=== PATIENT | female | born 1940 | race Caucasian/White ===

== ENCOUNTER 2019-07-28 09:24 | Emergency (ER) | payer OTHER ==
[2019-07-28 12:03] LABS: Urine Blood 2+ (NEG); Urine Glucose NEGATIVE (NEG); Urine Protein 1+ (NEG); Urine Specific Gravity 1.015 (1.005-1.030)
--- NOTE | 2019-07-28 12:17 | EDPHYS ---
Physician Documentation [facility] Name: Dianne Bone Age: 78 yrs Sex: Female : 1940 Arrival Date: 07/28/2019 Time: 09:26 Bed 17 Private MD: ED Physician Nas Suárez HPI: 07/28 12:13 This 78 yrs old Female presents to ER via Ambulatory with complaints of jmm Urinary Problem. 12:13 The patient presents with urinary symptoms, dysuria. Onset: The symptoms/episode jmm began/occurred gradually, 2 week(s) ago. Modifying factors: The symptoms are alleviated by nothing, the symptoms are aggravated by nothing. Associated signs and symptoms: Pertinent positives: hematuria, Pertinent negatives: fever, vomiting. This is a 78 year old female with a history of htn, that presents to the ED with complaints of painful urination beginning 2 week ago. Patient prescribed ampicillin with no relief. Denies abdominal pain, denies vomiting. . Historical: - Allergies: 10:03 Floxin; aa5 - PMHx: 10:03 Hypertension; Thyroid problem; aa5 - PSHx: 10:03 Bladder suspension; Hysterectomy; Tonsillectomy; Appendectomy; Cholecystectomy; aa5 - Ebola Screening: : No symptoms or risks identified at this time. ROS: 12:13 Constitutional: Negative for fever, chills, and weight loss, Cardiovascular: Negative jmm for chest pain, palpitations, and edema, Respiratory: Negative for shortness of breath, cough, wheezing, and pleuritic chest pain, Abdomen/GI: Negative for abdominal pain, nausea, vomiting, diarrhea, and constipation. 12:13 : Positive for urinary symptoms, hematuria. 12:13 All other systems are negative. Exam: 12:13 Constitutional: This is a well developed, well nourished patient who is awake, alert, jmm and in no acute distress. Head/Face: atraumatic. Eyes: EOMI, no conjunctival erythema appreciated ENT: Moist Mucus Membranes Neck: Trachea midline, Supple Chest/axilla: Normal chest wall appearance and motion. Cardiovascular: Regular rate and rhythm. No edema appreciated Respiratory: Normal respirations, no respiratory distress appreciated Abdomen/GI: Non distended, soft Back: Normal ROM Skin: General appearance color normal MS/ Extremity: Moves all extremities, no obvious deformities appreciated, no edema noted to the lower extremities Neuro: Awake and alert, normal gait Psych: Behavior is normal, Mood is normal, Patient is cooperative and pleasant 12:13 Abdomen/GI: Inspection: abdomen appears normal, Bowel sounds: normal, Palpation: abdomen is soft and non-tender, in all quadrants. 12:13 Back: CVA tenderness, is absent. Vital Signs: 10:05 BP 158 / 75; Pulse 69; Resp 18 S; Temp 98.4(TE); Pulse Ox 96% on R/A; Weight 76.66 kg aa5 (R); Height 5 ft. 2 in. (157.48 cm) (R); Pain 2/10; 12:20 BP 142 / 70; Pulse 66; Resp 17; Pulse Ox 98% on R/A; sg 10:05 Body Mass Index 30.91 (76.66 kg, 157.48 cm) aa5 MDM: 12:06 Patient medically screened. [facility] 12:15 Data reviewed: vital signs, nurses notes. Counseling: I had a detailed discussion with nelda the patient and/or guardian regarding: the historical points, exam findings, and any diagnostic results supporting the discharge/admit diagnosis, the need for outpatient follow up, to return to the emergency department if symptoms worsen or persist or if there are any questions or concerns that arise at home. ED course: Patient is alert and non toxic in appearance in the ED. Culture results reviewed. Patient will be prescribed oral abx and otherwise given strict return precautions. Patient understood and agrees with the plan of care. . 07/28 11:35 Order name: Urine Dipstick--Ancillary (enter results); Complete Time: 12:07 bd 07/28 10:07 Order name: Urine Dipstick-Ancillary (obtain specimen); Complete Time: 11:33 kb Administered Medications: No medications were administered Disposition: 19:00 Co-signature as Attending Physician, Nas Suárez MD. rn Disposition: 07/28/19 12:16 Discharged to Home. Impression: Urinary tract infection, site not specified. - Condition is Stable. - Discharge Instructions: Urinary Tract Infection, Adult. - Prescriptions for Augmentin 875- 125 mg Oral Tablet - take 1 tablet by ORAL route every 12 hours for 10 days; 20 tablet. - Medication Reconciliation Form, Thank You Letter, Antibiotic Education, Prescription Opioid Use form. - Follow up: Private Physician; When: 2 - 3 days; Reason: Recheck today's complaints, Continuance of care, Re-evaluation by your physician. Signatures: Dispatcher [employer] Nikki Baig, JAS MULTANI-Mike Luke, RN Rafal Irizarry PA PA jmm Nieto, Roman, MD MD rn Calderon, Audri, RN RN aa5 Corrections: (The following items were deleted from the chart) 12:45 12:16 07/28/2019 12:16 Discharged to Home. Impression: Urinary tract infection, site sg not specified. Condition is Stable. Forms are Medication Reconciliation Form, Thank You Letter, Antibiotic Education, Prescription Opioid Use. Follow up: Private Physician; When: 2 - 3 days; Reason: Recheck today's complaints, Continuance of care, Re-evaluation by your physician. nelda
--- NOTE | 2019-07-28 12:17 | ER ---
Nurse's Notes [facility] Name: Dianne Bone Age: 78 yrs Sex: Female : 1940 Arrival Date: 07/28/2019 Time: 09:26 Bed 17 Private MD: Diagnosis: Urinary tract infection, site not specified Presentation: 07/28 10:03 Presenting complaint: Patient states: "I had a bladder infection about 2 weeks ago and aa5 I fished my antibiotics for 10 days". Pt states "they did a urine culture here but I haven't gotten the results back yet". Pt c/o blood in the urine that is pinkish in color today and also reports urinary frequency. Transition of care: patient was not received from another setting of care. Onset of symptoms was July 2019. Risk Assessment: Do you want to hurt yourself or someone else? Patient reports no desire to harm self or others. Initial Sepsis Screen: Does the patient meet any 2 criteria? No. Patient's initial sepsis screen is negative. Does the patient have a suspected source of infection? No. Patient's initial sepsis screen is negative. Care prior to arrival: None. 10:03 Acuity: DAMIAN 3 aa5 10:03 Method Of Arrival: Ambulatory aa5 Historical: - Allergies: 10:03 Floxin; aa5 - PMHx: 10:03 Hypertension; Thyroid problem; aa5 - PSHx: 10:03 Bladder suspension; Hysterectomy; Tonsillectomy; Appendectomy; Cholecystectomy; aa5 - Ebola Screening: : No symptoms or risks identified at this time. Assessment: 12:00 General: Appears in no apparent distress. comfortable, well groomed, well developed, sg well nourished, Behavior is calm, cooperative, appropriate for age. Pain: Complains of pain in suprapubic area. Neuro: Level of Consciousness is awake, alert, obeys commands, Oriented to person, place, time, Grocery Stocker are equal bilaterally Moves all extremities. Full function Gait is steady, Speech is normal, Facial symmetry appears normal. Cardiovascular: Capillary refill is brisk in bilateral fingers Patient's skin is warm and dry. Chest pain is denied. Respiratory: Airway is patent Respiratory effort is even, unlabored, Respiratory pattern is regular, symmetrical. GI: Abdomen is round non-distended, Bowel sounds present X 4 quads. : Reports pain in suprapubic area with urination. EENT: No signs and/or symptoms were reported regarding the EENT system. Derm: Skin is pink, warm \\T\\ dry. Musculoskeletal: Circulation, motion, and sensation intact. Range of motion: intact in all extremities. Vital Signs: 10:05 BP 158 / 75; Pulse 69; Resp 18 S; Temp 98.4(TE); Pulse Ox 96% on R/A; Weight 76.66 kg aa5 (R); Height 5 ft. 2 in. (157.48 cm) (R); Pain 2/10; 12:20 BP 142 / 70; Pulse 66; Resp 17; Pulse Ox 98% on R/A; sg 10:05 Body Mass Index 30.91 (76.66 kg, 157.48 cm) aa5 ED Course: 09:26 Patient arrived in ED. rg4 10:01 Arm band placed on. aa5 10:05 Triage completed. aa5 12:00 No provider procedures requiring assistance completed. Patient did not have IV access sg during this emergency room visit. 12:03 Rafal Lofton PA is PHCP. nelda 12:03 Nas Suárez MD is Attending Physician. [facility] 12:30 Patient has correct armband on for positive identification. Bed in low position. Call sg light in reach. Side rails up X2. Pulse ox on. NIBP on. Warm blanket given. Head of bed elevated. Administered Medications: No medications were administered Outcome: 12:16 Discharge ordered by . [facility] 12:40 Discharged to home ambulatory, with family. sg 12:40 Condition: good 12:40 Discharge instructions given to patient, Instructed on discharge instructions, follow up and referral plans. medication usage, safety practices, Demonstrated understanding of instructions, follow-up care, medications, Prescriptions given X 1. 12:45 Patient left the ED. sg Signatures: Mike Whittington RN RN sg Mickail, Joel, PA PA jmm Calderon, Audri, RN RN tamra5 Jocelynn Dupont rg4
[2019-07-28 12:58] VITALS: BP 158/75; TEMP 98.4; O2SAT 96
== END 2019-07-28 12:45 | disposition home or self-care (01) ==
LOC: ER 09:24
DX: N39.0 Urinary tract infection, site not specified (principal); I10 Essential (primary) hypertension; Z88.8 Allergy status to other drugs, medicaments and biological substances
CPT/HCPCS: 81003; 99283

== ENCOUNTER 2021-05-05 22:08 | Emergency (ER) | payer OTHER ==
--- OUTSIDE RECORDS SUMMARY | 2021-05-05 22:11 | XMS REPORT | Continuity of Care Document ---
:1940 Author Organization [facility] t Address [address] [place] [address] [address] [place] [address] Care Team Providers Name Role Phone DENG Attending Clinician Unavailable SHELBY Attending Clinician Unavailable MD MOMO RYAN Attending Clinician Unavailable Rin Carrasquillo Attending Clinician [phone] SHELBY Admitting Clinician Unavailable MD MOMO RYAN Admitting Clinician Unavailable Problems This patient has no known problems. Allergies, Adverse Reactions, Alerts This patient has no known allergies or adverse reactions. Medications This patient has no known medications. Procedures This patient has no known procedures. Encounters Start End Encounter Admission Attending Care Care Encounter Source Date/Time Date/Time Type Type Clinicians Facility Department ID 2021-04-30 2021-04-30 Outpatient DENG [facility] [id number] [place] 00:00:00 00:00:00 JULIUS [address] 2021-03-27 2021-03-29 Outpatient TASNEEM RYAN [facility] 021 [id number] [place] 00:00:00 00:00:[address] 2021-03-24 2021-03-24 Outpatient TASNEEM RYAN [facility] [id number] [place] 00:00:00 00:00:[address] 2021-03-04 2021-03-04 Outpatient Radha Carrasquillo [facility] [id number] 00:00:00 00:00:00 Rin [id number] 2021-03-03 2021-03-03 Outpatient TASNEEM RYAN [facility] [id number] [place] 00:00:00 00:00:[address] 2021-02-28 2021-02-28 Outpatient TASNEEM RYAN [facility] [id number] [place] 00:00:00 00:00:[address] 2021-02-03 2021-02-03 Outpatient Radha Carrasquillo [facility] [id number] 00:00:00 00:00:00 Rin [id number] 2021-01-28 2021-01-28 Outpatient TASNEEM RYAN [facility] [id number] [place] 00:00:00 00:00:[address] 2021-01-28 2021-01-28 Outpatient TASNEEM RYAN [facility] [id number] [place] 00:00:00 00:00:[address] 2021-01-28 2021-01-28 Outpatient TASNEEM RYAN [facility] [id number] [place] 00:00:00 00:00:[address] 2021-01-28 2021-01-28 Outpatient TASNEEM RYAN [facility] [id number] [place] 00:00:00 00:00:[address] 2021-01-21 2021-01-21 Outpatient Radha Carrasquillo [facility] [id number] 00:00:00 00:00:00 Rin [id number] 2021-01-15 2021-01-15 Outpatient Radha Carrasquillo [facility] 121 [id number] 00:00:00 00:00:00 Rin [id number] 2020-12-02 2020-12-02 Outpatient Radha Carrasquillo [facility] [id number] 00:00:00 00:00:00 Rin [id number] Results Test Description Test Time Test Comments Results Result Comments Source SARS-CoV-2 (COVID-19) RNA [Presence] in Respiratory sp ecimen by 2021-03-24 16:22:33 JOE with probe detection Test Item Value Reference Range Interpretation Comme nts SARS-CoV-2 (COVID-19) RNA [Presence] in Respiratory Not detected No t-Detected specimen by JOE with probe detection (test code = 63502-5) Whether patient is employed in a healthcare setting (test code = 79689-8) Whether the patient has symptoms related to condition of interest (test code = 02423-1) Patient was hospitalized because of this condition (test code = 21241-6) Whether the patient was admitted to intensive care unit (ICU) for condition of interest (test code = 31015-9) Whether patient resides in a congregate care setting (test code = 92009-4) SARS-CoV-2 (COVID-19) RNA [Presence] in Respiratory specimen by JOE with probe [id number] 16:13:50 Test Item Value Reference Range Interpretation Comments SARS-CoV-2 (COVID-19) RNA Not detected Not-Detected [Presence] in Respiratory specimen by JOE with probe detection (test code = 74588-7)
--- NOTE | 2021-05-05 22:42 | EDPHYS ---
Physician Documentation [facility] Name: Dianne Bone Age: 80 yrs Sex: Female : 1940 Arrival Date: 05/05/2021 Time: 22:11 Bed 15 Private MD: ED Physician Be Morse HPI: 05/06 00:30 This 80 yrs old Female presents to ER via Ambulatory with complaints of kb Foreign Body In Ear. 00:30 The patient or guardian reports the patient has a suspected foreign body, of the ear, kb on the right. The reported likely foreign body is ear bud cover. Onset: The symptoms/episode began/occurred just prior to arrival. Current symptoms: foreign body sensation. Treatment Prior to Arrival: tried to remove, but couldn't get out. The patient has not experienced similar symptoms in the past. The patient has not recently seen a physician. Pt states she was using some earbuds and when she pulled it out the cover wasn't on it. Believes it is still in her ear. . Historical: - Allergies: 05/05 22:24 Floxin; rr5 - PMHx: 22:24 Hypertension; Thyroid problem; rr5 - PSHx: 22:24 hiatal hernia repair; rr5 - Immunization history:: Adult Immunizations up to date. - Social history:: Smoking status: unknown. ROS: 05/06 00:29 Constitutional: Negative for fever, chills, and weight loss. kb ENT: Positive for foreign body sensation. All other systems are negative. Exam: 00:29 Constitutional: This is a well developed, well nourished patient who is awake, alert, kb and in no acute distress. Head/Face: Normocephalic, atraumatic. Respiratory: Respirations even and unlabored. No increased work of breathing, no retractions or nasal flaring. Skin: Warm, dry with normal turgor. Normal color. MS/ Extremity: Pulses equal, no cyanosis. Neurovascular intact. Full, normal range of motion. Neuro: Awake and alert, GCS 15, oriented to person, place, time, and situation. Moves all extremities. Normal gait. Psych: Awake, alert, with orientation to person, place and time. Behavior, mood, and affect are within normal limits. 00:29 ENT: External ear(s): are unremarkable, Ear canal(s): are normal, TM's: are normal. Vital Signs: 05/05 22:20 BP 170 / 79; Pulse 83; Resp 16; Temp 98.5; Pulse Ox 99% ; Weight 72.57 kg; Height 5 ft. rr5 1 in. (154.94 cm); Pain 0/10; 22:20 Body Mass Index 30.23 (72.57 kg, 154.94 cm) rr5 MDM: 22:23 Patient medically screened. kb 22:30 ED course: No foreign body seen in ear canal. kb 22:40 Data reviewed: vital signs, nurses notes. Data interpreted: Pulse oximetry: on room air kb is 99 %. Interpretation: normal. Counseling: I had a detailed discussion with the patient and/or guardian regarding: the historical points, exam findings, and any diagnostic results supporting the discharge/admit diagnosis, the need for outpatient follow up, an ENT specialist, to return to the emergency department if symptoms worsen or persist or if there are any questions or concerns that arise at home. 05/06 00:31 ED course: Pt called back to report she found the earbud cover at home. kb Administered Medications: No medications were administered Disposition: 05/05 22:40 Person with feared health complaint in whom no diagnosis is made. kb 05/06 02:02 Co-signature as Attending Physician, Be Morse MD. hunter Disposition: 05/05/21 22:41 Discharged to Home. Impression: Encounter for screening, unspecified. - Condition is Stable. - Medication Reconciliation Form, Thank You Letter, Antibiotic Education, Prescription Opioid Use form. - Follow up: Emergency Department; When: As needed; Reason: Worsening of condition. Follow up: Private Physician; When: 2 - 3 days; Reason: Recheck today's complaints, Continuance of care, Re-evaluation by your physician. Signatures: Nikki Sheridan, RANGEL-C RANGEL-Be Loera MD MD pkAlfonso Livingston RN RN rr5 Corrections: (The following items were deleted from the chart) 05/05 22:46 22:41 05/05/2021 22:41 Discharged to Home. Impression: Encounter for screening, rr5 unspecified. Condition is Stable. Forms are Medication Reconciliation Form, Thank You Letter, Antibiotic Education, Prescription Opioid Use. Follow up: Emergency Department; When: As needed; Reason: Worsening of condition. Follow up: Private Physician; When: 2 - 3 days; Reason: Recheck today's complaints, Continuance of care, Re-evaluation by your physician. kb
--- NOTE | 2021-05-05 22:42 | ER ---
Nurse's Notes [facility] Name: Dianne Bone Age: 80 yrs Sex: Female : 1940 Arrival Date: 05/05/2021 Time: 22:11 Bed 15 Private MD: Diagnosis: Encounter for screening, unspecified Presentation: 05/05 22:20 Chief complaint: Patient states: the ear bud rubber from my ear phone got stock in my rr5 right ear. Coronavirus screen: Client denies travel out of the [place] in the last 14 days. At this time, the client does not indicate any symptoms associated with coronavirus-19. Ebola Screen: Patient negative for fever greater than or equal to 101.5 degrees Fahrenheit, and additional compatible Ebola Virus Disease symptoms Patient denies exposure to infectious person. Patient denies travel to an Ebola-affected area in the 21 days before illness onset. Initial Sepsis Screen: Does the patient meet any 2 criteria? No. Patient's initial sepsis screen is negative. Does the patient have a suspected source of infection? No. Patient's initial sepsis screen is negative. Risk Assessment: Do you want to hurt yourself or someone else? Patient reports no desire to harm self or others. Onset of symptoms was May 05, 2021. 22:20 Method Of Arrival: Ambulatory rr5 22:20 Acuity: DAMIAN 4 rr5 Historical: - Allergies: 22:24 Floxin; rr5 - PMHx: 22:24 Hypertension; Thyroid problem; rr5 - PSHx: 22:24 hiatal hernia repair; rr5 - Immunization history:: Adult Immunizations up to date. - Social history:: Smoking status: unknown. Screenin:37 Abuse screen: Denies threats or abuse. Denies injuries from another. Nutritional rr5 screening: No deficits noted. Tuberculosis screening: No symptoms or risk factors identified. Fall Risk None identified. Total Damon Fall Scale indicates No Risk (0-24 pts). Assessment: 22:20 General: Appears in no apparent distress. uncomfortable, Behavior is calm, cooperative, rr5 appropriate for age. 22:20 Pain: Denies pain. Neuro: Level of Consciousness is awake, alert, obeys commands, rr5 Oriented to person, place, situation. Cardiovascular: Capillary refill < 3 seconds Patient's skin is warm and dry. Respiratory: Airway is patent Respiratory effort is even, unlabored, Respiratory pattern is regular, symmetrical. GI: No signs and/or symptoms were reported involving the gastrointestinal system. : No signs and/or symptoms were reported regarding the genitourinary system. EENT: Reports ear bud stock in my right ear. Derm: Skin is intact, is healthy with good turgor, Skin temperature is warm. Musculoskeletal: Capillary refill < 3 seconds. Vital Signs: 22:20 BP 170 / 79; Pulse 83; Resp 16; Temp 98.5; Pulse Ox 99% ; Weight 72.57 kg; Height 5 ft. rr5 1 in. (154.94 cm); Pain 0/10; 22:20 Body Mass Index 30.23 (72.57 kg, 154.94 cm) rr5 ED Course: 22:11 Patient arrived in ED. as 22:20 Alfonso Vieira, RN is Primary Nurse. rr5 22:20 Arm band placed on right wrist. rr5 22:23 Nikki Sheridan FNP-C is [facility]. kb 22:23 Be Morse MD is Attending Physician. kb 22:24 Triage completed. rr5 22:37 Patient has correct armband on for positive identification. Bed in low position. Call rr5 light in reach. Pulse ox on. NIBP on. 22:42 No provider procedures requiring assistance completed. Patient did not have IV access rr5 during this emergency room visit. Administered Medications: No medications were administered Outcome: 22:41 Discharge ordered by . kb 22:45 Medical screen evaluation completed per provider. rr5 22:45 Condition: stable 22:45 Discharge instructions given to patient, Instructed on follow up and referral plans. Demonstrated understanding of follow-up care. 22:46 Patient left the ED. rr5 Signatures: Nikki Sheridan FNP-C FNP-Ckb Martinez, Amelia as Alfonso Vieira, RN RN rr5
[2021-05-05 23:29] VITALS: BP 170/79; TEMP 98.5; O2SAT 99
== END 2021-05-05 22:46 | disposition home or self-care (01) ==
LOC: ER 22:08
DX: Z04.3 Encounter for examination and observation following other accident (principal); I10 Essential (primary) hypertension
CPT/HCPCS: 99283

== ENCOUNTER 2021-07-14 19:31 | Inpatient (IN) | payer OTHER ==
--- OUTSIDE RECORDS SUMMARY | 2021-07-14 19:36 | XMS REPORT | Continuity of Care Document ---
:1940 Author Organization [facility] t Address [address] [place] [address] Dr. Barnes [address] [place] [id number] Care Team Providers Name Role Phone Rin Ro MD Primary Care Physician Rin Ro MD Attending Clinician Silverio GONZALEZ Attending Clinician Unavailable Breann Attending Clinician [phone] Mena Boone NP Attending Clinician Provider Attending Clinician Lisa BANKS, Momo Attending Clinician hSireen BANKS, Yovani Attending Clinician [phone] MD MOMO GONZALEZ Attending Clinician Unavailable Provider Attending Clinician Unavailable LISA Admitting Clinician Unavailable MD MOMO GONZALEZ Admitting Clinician Unavailable Payers Payer Name Policy Type Policy Number Effective Expiration Source Date Date MEDICAREMEDICARE PART [id number] [facility] [id number] 2006 [place] [id number] 2015 [facility] LIFE MCR 00:00:00 Hospital [id number] 2015-[facility] tary MEDICARE PART A \T\ B [id number] - MEDICARE FOR LIFE - [id number] Problems Condition Condition Condition Status Onset Resolution Last Treating Co mments Source Name Details Category Date Date Treatment Clinician Date Hiatal Hiatal Disease Active Overview: Method i hernia hernia 3-[address] 00:00: g of this Hospita 00 note l might be different from the original. Added automatic ally from request for surgery [id number] Allergies, Adverse Reactions, Alerts Allergy Allergy Status Severity Reaction(s) Onset Inactive Treating Comm ents Source Name Type Date Date Clinician Sigifredo Cruz Active Other (See Patient M mariya medeiros ty to Comments) 01-[address] adverse 00:00: mouth Hospita reaction 00 sores l s to with drug taking medicatio n, denies rash Family History Family Member Diagnosis Comments Start Date Stop Date Source Natural brother [facility] disease [facility] Natural mother [facility] disease [facility] Social History Social Habit Start Date Stop Date Quantity Comments Source History SDOH [facility] Alcohol Std Drinks Hospit al History SDOH [facility] Alcohol Binge Hospital Exposure to Not sure [facility] SARS-CoV-2 (event) Hospit al Tobacco use and 2021-04-30 2021-04-30 Never used [facility] exposure 00:00:00 00:00:00 Hospital Alcohol intake 2021-04-30 2021-04-30 Lifetime [facility] 00:00:00 00:00:00 non-drinker Hospital (finding) History SDOH 2021-01-28 2021-01-28 1 [facility] Alcohol Frequency 00:00:00 00:00:00 Hospita l Sex Assigned At [birth year] F [facility] 00:00:00 00:00:00 Hospital Smoking Status Start Date Stop Date Source Never smoker [facility] Hospit al Medications Ordered Filled Start Stop Current Ordering Indication Dosage Frequency Signature Comments Components Source Medication Medication Date Date Medication? Clinician (SIG) Name Name latanoprost Yes 1[drp] QD 1 drop Me thodi fortino bunod 04-[address] (Vyzulta) 14:39: Hospita 0.024 % 56 l drops opthalmic solution cholecalcif Yes Take by Met hodi kori, 04-[address] vitamin D3, 14:39: Hospit a 5,000 unit 56 l capsule vit Yes Take by Methodi C/E/zinc 04-[address] ox/kevyn/lut 14:39: Hospit a /zeax 56 l (ICAPS AREDS2 ORAL) acetaminoph 2020- No 1000mg Q8H Take 2 M ethodi en -15 -[address] (TYLENOL) 00:00: 04:59 (1,000 mg Ho spita 500 MG 00 :00 total) by l tablet mouth every 8 (eight) hours for 30 days. simethicone 2020- No 80mg Q6H Chew 1 Met hodi (MYLICON) 15 -15 tablet (80 st 80 MG 00:00: 04:59 mg total) Hospit a chewable 00 :00 every 6 l tablet (six) hours for 30 days. tamsulosin 2020- No .4mg QD Take 1 Meth boy (FLOMAX) 03-29-[address] 0.4 mg 00:00: 04:59 (0.4 mg Hospita capsule 00 :00 total) by l mouth daily with dinner for 30 days. methocarbam 2020- No 500mg Q6H Take 1 Me thodi oL 03-[address] (ROBAXIN) 00:00: 04:59 (500 mg Hosp miranda 500 MG 00 :00 total) by l tablet mouth every 6 (six) hours as needed for muscle spasms for up to 7 days. naproxen 2020- No 220mg Q.5D Take 1 Metho di sodium 03-29-[address] (Aleve) 220 00:00: 04:59 (220 mg Ho spita MG tablet 00 :00 total) by l mouth 2 (two) times a day with meals for 3 days. levothyroxi Yes Method i ne 3-10 st (SYNTHROID) 00:00: Hospit a 50 mcg 00 l tablet irbesartan Yes Methodi (AVAPRO) 3-06 st 150 MG 00:00: Hospita tablet 00 l Vital Signs Vital Name Observation Time Observation Value Comments Source Systolic blood 2021-04-30 14:38:00 153 mm[Hg] [facility] pressure Diastolic blood 2021-04-30 14:38:00 80 mm[Hg] [facility] pressure Heart rate 2021-04-30 14:35:00 73 /min [facility] Body temperature 2021-04-30 14:35:00 36.39 [facility] Respiratory rate 2021-04-30 14:35:00 18 /min [facility] Body height 2021-04-30 14:35:[address] [facility] Body weight 2021-04-30 14:35:[address] [facility] BMI 2021-04-30 14:35:00 31.42 kg/m2 [facility] Oxygen saturation in 2021-04-30 14:35:00 96 /min [facility] Arterial blood by Pulse oximetry Procedures Procedure Date / Time Performing Clinician Source Performed PET CT SKULL BASE TO MID 2021-07-02 15:48:20 Radha Ro [facility] THIGH POC GLUCOSE 2021-07-02 13:41:00 Radha Ro H ospital [id number] 2021-04-04 00:00:00 Provider, Zoey [facility] POC GLUCOSE 2021-03-29 16:46:00 Karthik Gonzalez spital POC GLUCOSE 2021-03-29 12:45:00 Karthik Gonzalez Ho spital LACTIC ACID LEVEL 2021-03-29 10:43:00 [facility] HC COMPLETE BLD COUNT 2021-03-29 10:43:00 [facility] W/AUTO DIFF Antoinette BASIC METABOLIC PANEL 2021-03-29 10:43:00 [facility] ESTIMATED GFR 2021-03-29 10:43:00 Karthik Gonzalez spital POC GLUCOSE 2021-03-29 02:03:00 Karthik Gonzalez Ho spital POC GLUCOSE 2021-03-28 23:14:00 Karthik Gonzalez spital BASIC METABOLIC PANEL 2021-03-28 22:00:00 Stephenie Ferrera [facility] LACTIC ACID LEVEL 2021-03-28 22:00:00 [facility] Antoinette ESTIMATED GFR 2021-03-28 22:00:00 Stephenie Ferrera spital HC COMPLETE BLD COUNT 2021-03-28 21:10:00 Stephenie Ferrera [facility] W/AUTO DIFF HC COMPLETE BLD COUNT 2021-03-28 [facility]INE CULTURE 2021-03-28 16:00:00 Stephenie Ferrera spital URINALYSIS SCREEN AND 2021-03-28 16:00:00 Iban, [facility] MICROSCOPY, WITH REFLEX TO CULTURE LACTIC ACID LEVEL 2021-03-28 15:30:[facility] P[facility]SE 2021-03-28 13:23:00 Karthik Gonzalez spital BASIC METABOLIC PANEL 2021-03-28 07:44:00 [facility] Leobardo HC COMPLETE BLD COUNT 2021-03-28 07:44:00 [facility] W/AUTO DIFF Leobardo MAGNESIUM LEVEL 2021-03-28 07:44:00 [facility] 2021-03-28 07:44:00 [facility] 2021-03-28 07:44:00 Karthik Gonzalez spital POC GLUCOSE 2021-03-28 02:28:00 Karthik Gonzalez spital POC GLUCOSE 2021-03-27 23:12:00 Karthik Gonzalez spital POC GLUCOSE 2021-03-27 22:31:00 Karthik Gonzalez spital POC GLUCOSE 2021-03-27 22:21:00 Karthik Gonzalez spital HC COMPLETE BLD COUNT 2021-03-27 21:37:00 [facility] Leobardo MAGNESIUM LEVEL 2021-03-27 21:30:00 [facility] PHOSPHORUS LEV[facility] 2021-03-27 21:30:00 [facility] BASIC METABOLIC PANEL 2021-03-27 21:30:00 Karthik Gonzalez [facility] ESTIMATED GFR 2021-03-27 21:30:00 Karthik Gonzalez spital POC GLUCOSE 2021-03-27 21:24:00 Karthik Gonzalez spital VENOUS BLOOD GAS, 2021-03-27 19:52:00 Lisa [facility] CORRECTED SODIUM LEVEL, SYRINGE 2021-03-27 19:52:00 Lisa [facility] IONIZED CALCIUM, VENOUS 2021-03-27 19:52:00 Lisa [facility] HEMOGLOBIN, SYRINGE 2021-03-27 19:52:00 Lisa [facility] POTASSIUM, SYRINGE 2021-03-27 19:52:00 Lisa [facility] GLUCOSE LEVEL, SYRINGE 2021-03-27 19:52:[address] [facility] MS AN ELECTIVE 2021-03-27 16:14:13 Bucky-Zackary Bhatt [facility] ENDOTRACHEAL AIRWAY Yovani REPAIR, HIATAL HERNIA, 2021-03-27 15:50:[address] [facility] LAPAROSCOPIC, ROBOT-ASSISTED EGD, INTRAOPERATIVE 2021-03-27 15:50:00 Lisa [facility] TYPE AND SCREEN 2021-03-27 13:48:[address] [facility] M. SURGICAL PATHOLOGY 2021-03-27 13:20:00 Lisa [facility] REQUEST COVID-19 QUALITATIVE 2021-03-24 16:02:00 Karthik Gonzalez [facility] RT-PCR [id number] 2021-03-12 00:00:00 Provider, Historical [facility] [id number] 2021-03-05 00:00:00 Provider, Historical [facility] COVID-19 QUALITATIVE 2021-03-03 15:42:00 Lisa [facility] RT-PCR [id number] 2021-03-03 00:00:00 Provider, [facility] PARTIAL THROMBOPLASTIN 2021-02-28 15:00:[address] [facility] TIME (PTT) PROTHROMBIN TIME WITH INR 2021-02-28 15:00:00 Lisa Karthik [facility] COMPREHENSIVE METABOLIC 2021-02-28 15:00:00 LisaKarthik [facility] PANEL TYPE AND SCREEN 2021-02-28 15:00:00 Lisa Karthik [facility] spital HC COMPLETE BLD COUNT 2021-02-28 15:00:00 Karthik Gonzalez [facility] W/AUTO DIFF ESTIMATED GFR 2021-02-28 15:00:00 Karthik Gonzalez [facility] Ho spital US SOFT TISSUE HEAD NECK 2021-01-28 00:00[facility] 2021-01-22 16:51:00 Karthik Gonzalez [facility] CT CHEST EXTERNAL STUDY 2021-01-17 15:00:00 Karthik Gonzalez [facility] CT CHEST W WO CONTRAST 2021-01-17 00:00:00 Provider, [facility] XR CHEST EXTERNAL STUDY 2021-01-15 15:13:00 Karthik Gonzalez [facility] XR CHEST 2 VW 2021-01-15 00:00:00 Provider, [facility] Plan of Care Planned Activity Planned Date Details Comments Source Future Scheduled Test 65+ PNEUMOCOCCAL Me [facility] VACCINE (1 of 2 - PPSV23) [code = 65+ PNEUMOCOCCAL VACCINE (1 of 2 - PPSV23)] Future Scheduled Test DIABETES: RETINAL EYE [facility] EXAM [code = DIABETES: RETINAL EYE EXAM] Future Scheduled Test DIABETIC FOOT EXAM [facility] [code = DIABETIC FOOT EXAM] Future Scheduled Test URINE MICROALBUMIN [facility] [code = URINE MICROALBUMIN] Future Scheduled Test COVID-19 VACCINE (1) [facility] [code = COVID-19 VACCINE (1)] Future Scheduled Test Hepatitis C screening [facility] (procedure) [code = 629422447] Future Scheduled Test SHINGLES VACCINES (#1) [facility] [code = SHINGLES VACCINES (#1)] Future Scheduled Test INFLUENZA VACCINE [code [facility] = INFLUENZA VACCINE] Encounters Start End Encounter Admission Attending Care Care Encounter Source Date/Time Date/Time Type Type Clinicians Facility Department ID 2021-07-02 2021-07-02 Hospital Radha Ro 1.2.840.1 [id number] Methodi 08:03:07 23:59:00 Encounter Rin 84710.1.[address] 3.430.2.7 Hospit a .3.083047 l .8 2021-07-02 2021-07-02 Outpatient RADHA RO [facility] [id number] [place] 00:00:00 00:00:[address] 2021-07-02 2021-07-02 Travel 1.2.840.1 1.2.402.704 [id number] [facility]i 00:00:00 00:00:[address] 3.430.2.7 0.2.7.3.698 Ho spita .3.668658 084.8 l .8 2021-06-25 2021-06-25 Travel 1.2.840.1 1.2.366.591 7841 [id number] Methodi 00:00:00 00:00:[address] 3.430.2.7 0.2.7.3.698 Ho spita .3.082397 084.8 l .8 2021-06-25 2021-06-25 Transcribe Radha Ro 1.2.840.1 [id number] Methodi 00:00:00 00:00:00 Orders Rin 90083.1.[address] 3.430.2.7 Hospit a .3.995010 l .8 2021-06-23 2021-06-23 Outpatient Radha Ro [facility] da4 [id number] 00:00:00 00:00:00 Rin [id number] 2021-06-17 2021-06-17 Outpatient LISA [facility] [id number] [facility] 09:46:38 11:03:07 [facility] 2021-06-04 2021-06-04 [facility] [id number]-[id number] 00:00:00 00:00:00 Aubrey [id number] 2021-05-20 2021-05-20 Outpatient LISA [facility] [id number] [facility] 10:44:19 12:36:17 [facility] 2021-05-15 2021-05-15 [facility] [id number] 00:00:00 00:00:00 Aubrey [id number] 2021-05-06 2021-05-06 Outpatient Radha Ro [facility] [id number] 00:00:00 00:00:00 Rin [id number] 2021-04-30 2021-04-30 Office [facility], 1.2.840.1 [id number] Methodi 09:31:01 11:13:52 Visit Christine San 14559.1.1 530 s t 3.430.2.7 Hospit a .3.140070 l .8 2021-04-30 2021-04-30 Outpatient [facility] [id number] [place] 00:00:00 00:00:00 CHRISTINE [address] 2021-04-04 2021-04-04 Telephone [facility], 1.2.840.1 [id number] Methodi 00:00:00 00:00:00 Christine San 12788.1.1 699 s t 3.430.2.7 Hospit a .3.200788 l .8 2021-04-04 2021-04-04 Orders Provider, 1.2.840.1 [id number] Methodi 00:00:00 00:00:00 Only Historical 90593.1.1 757 s t 3.430.2.7 Hospit a .3.186240 l .8 2021-04-01 2021-04-01 Travel 1.2.840.1 1.2.225.836 0355 [id number] Methodi 00:00:00 00:00:[address] 3.430.2.7 0.2.7.3.698 Ho spita .3.727100 084.8 l .8 2021-03-31 2021-03-31 Telephone Lisa, Min 1.2.840.8 [id number] Methodi 00:00:00 00:00:[address] 3.430.2.7 Hospit a .3.328456 l .8 2021-03-27 2021-03-29 Hospital Karthik Gonzalez 1.2.840.1 [id number] [id number] [facility] 07:39:00 12:26:00 Encounter Momo 28374.1.[address] 3.430.2.7 Hospit a .3.494867 l .8 2021-03-27 2021-03-29 Outpatient KARTHIK GONZALEZ [facility] [id number] [place] 00:00:00 00:00:[address] 2021-03-27 2021-03-27 Anesthesia [facility] 1.2.840.1 [id number] Methodi 10:50:00 16:23:00 Event Zackary alcocer 39221.1.1 314 s t Yovani 3.430.2.7 Hospit a .3.067429 l .8 2021-03-27 2021-03-27 Surgery Karthik Gonzalez 1.2.840.1 [id number] [id number] Methodi 11:50:00 16:05:[address] 3.430.2.7 Hospit a .3.280761 l .8 2021-03-27 2021-03-27 Travel 1.2.840.1 1.2.182.003 5351 [id number] [facility]i 00:00:00 00:00:[address] 3.430.2.7 0.2.7.3.698 Ho spita .3.333588 084.8 l .8 2021-03-26 2021-03-26 Prep for Meisenbach, 1.2.840.1 [id number] 2 [id number] Methodi 00:00:00 00:00:00 Surgery Christine San 07897.1.1 345 s t 3.430.2.7 Hospit a .3.180036 l .8 2021-03-26 2021-03-26 Telephone [place], 1.2.840.1 [id number] Methodi 00:00:00 00:00:00 Christine San 08215.1.1 893 s t 3.430.2.7 Hospit a .3.958951 l .8 2021-03-25 2021-03-25 Orders Provider, 1.2.840.1 [id number] 2100 [id number] Methodi 00:00:00 00:00:00 Only Historical 16326.1.1 826 s t 3.430.2.7 Hospit a .3.463804 l .8 2021-03-24 2021-03-24 Lab Karthik Gonzalez 1.2.840.1 [id number] [facility] 10:46:31 10:51:[address] 3.430.2.7 Hospit a .3.103204 l .8 2021-03-24 2021-03-24 Travel 1.2.840.1 1.2.639.988 8291 [id number] Methodi 00:00:00 00:00:[address] 3.430.2.7 0.2.7.3.698 Ho spita .3.781422 084.8 l .8 2021-03-24 2021-03-24 Outpatient KARTHIK GONZALEZ [facility] [id number] [place] 00:00:00 00:00:[address] 2021-03-13 2021-03-13 Telephone Mely, 1.2.840.1 [id number] Methodi 00:00:00 00:00:00 Christine San 24547.1.1 374 s t 3.430.2.7 Hospit a .3.146628 l .8 2021-03-04 2021-03-04 Outpatient Radha Ro [facility] 190 [id number] 00:00:00 00:00:00 Rin [id number] 2021-03-04 2021-03-04 Telephone Mely, 1.2.840.1 [id number] Methodi 00:00:00 00:00:00 Christine San 85075.1.1 418 s t 3.430.2.7 Hospit a .3.951957 l .8 2021-03-04 2021-03-04 Orders Provider, 1.2.840.1 [id number] [id number] Methodi 00:00:00 00:00:00 Only Historical 25815.1.1 161 s t 3.430.2.7 Hospit a .3.360977 l .8 2021-03-03 2021-03-03 Lab Lisa, Min 1.2.840.1 [id number] [id number] Methodi 10:33:55 10:48:[address] 3.430.2.7 Hospit a .3.910563 l .8 2021-03-03 2021-03-03 Outpatient KARTHIK GONZALEZ [facility] [id number] [place] 00:00:00 00:00:[address] 2021-03-03 2021-03-03 Telephone Mely, 1.2.840.1 [id number] Methodi 00:00:00 00:00:00 Christine M. 88670.1.1 089 s t 3.430.2.7 Hospit a .3.747837 l .8 2021-03-03 2021-03-03 Travel 1.2.840.1 1.2.412.396 2102 [id number] Methodi 00:00:00 00:00:[address] 3.430.2.7 0.2.7.3.698 spita .3.142332 084.8 l .8 2021-02-28 2021-02-28 Lab Lisa, Min 1.2.840.1 [id number] Methodi 09:48:52 10:03:[address] 3.430.2.7 Hospit a .3.873722 l .8 2021-02-28 2021-02-28 Outpatient KARTHIK GONZALEZ [facility] [id number] [place] 00:00:00 00:00:[address] 2021-02-28 2021-02-28 Travel 1.2.840.1 1.2.058.824 2410 [id number] Methodi 00:00:00 00:00:[address] 3.430.2.7 0.2.7.3.698 Ho spita .3.463157 084.8 l .8 2021-02-18 2021-02-18 Travel 1.2.840.1 1.2.783.382 6204 [id number] Methodi 00:00:00 00:00:[address] 3.430.2.7 0.2.7.3.698 Ho spita .3.534311 084.8 l .8 2021-02-10 2021-02-10 Telephone Lisa, Min 1.2.840.2 [id number] 21 [id number] Methodi 00:00:00 00:00:[address] 3.430.2.7 Hospit a .3.929433 l .8 2021-02-03 2021-02-03 Outpatient Radha Ro [facility] [id number] 00:00:00 00:00:00 Rin [id number] 2021-01-29 2021-01-29 Documentat Provider, 1.2.840.1 [id number] 2 [id number] Methodi 00:00:00 00:00:00 ion Unknown 94612.1.[address] 3.430.2.7 Hospit a .3.553988 l .8 2021-01-28 2021-01-28 Hospital Lisa, Min 1.2.840.1 [id number] 2100 [id number] Methodi 11:01:16 23:59:00 Encounter Momo 20781.1.[address] 3.430.2.7 Hospit a .3.519353 l .8 2021-01-28 2021-01-28 Office Lisa, Min 1.2.840.1 [id number] Methodi 10:36:20 13:03:45 Visit Momo 72790.1.[address] 3.430.2.7 Hospit a .3.030246 l .8 2021-01-28 2021-01-28 Hospital Lisa, Min 1.2.840.1 [id number] 2100 [id number] Methodi 10:59:40 11:00:00 Encounter Momo 64665.1.[address] 3.430.2.7 Hospit a .3.640379 l .8 2021-01-28 2021-01-28 [facility] Lisa, Min 1.2.840.1 [id number] 2100 [id number] Methodi 10:56:59 10:58:00 Encounter Momo 84056.1.[address] 3.430.2.7 Hospit a .3.282869 l .8 2021-01-28 2021-01-28 Orders Provider, 1.2.840.1 [id number] [id number] Methodi 00:00:00 00:00:00 Only Historical 68836.1.1 819 s t 3.430.2.7 Hospit a .3.717251 l .8 2021-01-28 2021-01-28 Travel 1.2.840.1 1.2.086.495 6563 [id number] Methodi 00:00:00 00:00:[address] 3.430.2.7 0.2.7.3.698 Ho spita .3.339090 084.8 l .8 2021-01-28 2021-01-28 Outpatient KARTHIK GONZALEZ [facility] [id number] [place] 00:00:00 00:00:[address] 2021-01-28 2021-01-28 Outpatient KARTHIK GONZALEZ [facility] [id number] [place] 00:00:00 00:00:[address] 2021-01-28 2021-01-28 Outpatient KARTHIK GONZALEZ [facility] [id number] [place] 00:00:00 00:00:[address] 2021-01-28 2021-01-28 Outpatient KARTHIK GONZALEZ [facility] [id number] [place] 00:00:00 00:00:[address] 2021-01-22 2021-01-22 Orders Provider, 1.2.840.1 [id number] 2100 [id number] Methodi 00:00:00 00:00:00 Only Historical 94435.1.1 214 s t 3.430.2.7 Hospit a .3.616415 l .8 2021-01-22 2021-01-22 Telephone Lisa, Min 1.2.840.2 [id number] 21 [id number] Methodi 00:00:00 00:00:[address] 3.430.2.7 Hospit a .3.347277 l .8 2021-01-22 2021-01-22 Travel 1.2.840.1 1.2.932.109 0060 [id number] Methodi 00:00:00 00:00:[address] 3.430.2.7 0.2.7.3.698 Ho spita .3.854584 084.8 l .8 2021-01-21 2021-01-21 Outpatient Radha Ro [facility] 126 [id number] 00:00:00 00:00:00 Rin [id number] 958C30 2021-01-15 2021-01-15 Outpatient Radha Ro [facility] [id number] 00:00:00 00:00:00 Rin [id number] 958C30 2020-12-02 2020-12-02 Outpatient Radha Ro [facility] [id number] [id number] 00:00:00 00:00:00 Rin [id number]-b360-4 [id number] [id number] Results Test Description Test Time Test Comments Results Result [facility] e Comments PET/CT Skull 2021-06-15 PROCEDURE: PET CT Meth odist Base To Mid 8 SKULL BASE TO MID Hospit al Thigh 19:13:55 THIGH INDICATION: Evaluate other nonspecific abnormal finding in lung field. Abnormal CT scan. Pulmonary nodule. Initial treatment strategy. TECHNIQUE: Blood glucose measured at the time of injection was 98 mg/dL. The patient was then injected with 12.3 mCi of 18F-FDG, IV. Approximately one hour later, PET images were acquired from the skull base to the mid thighs. Corresponding, low dose, non-contrast CT scanning was performed as part of the attenuation correction process. Automated dose exposure control was utilized. COMPARISON: Outside chest CT 01/17/2021, showing a 1.5 cm right lung nodule. FINDINGS: Head and neck: No suspicious brain uptake. Physiologic uptake in the sinuses, orbits, nasopharynx, and oropharynx. Uptake by the larynx is normal. No suspicious neck lymph node uptake. Chest: No abnormal mediastinal, hilar, or axillary lymph node uptake. Right middle lobe nodule along the right heart border noted on comparison CT is unchanged in terms of size. Abnormal uptake is present, with an SUV of 2.8. No suspicious uptake in the left lung. Abdomen: Postoperative changes at the GE junction. There is focal uptake present in this region, with an SUV of 6.3. Physiologic uptake in the spleen, pancreas, liver, and adrenal glands. No abnormal retroperitoneal or mesenteric lymph node uptake. Pelvis: Physiologic bowel uptake. No abnormal pelvic lymph node uptake. Review of the osseous structures demonstrates no suspicious uptake. IMPRESSION: 1. Findings concerning for a malignant right middle lobe pulmonary nodule.2. Focal uptake at the GE junction is suspicious for occult malignancy. However, given surrounding postoperative changes, this could be postprocedural. [facility]-[id number] [facility], Radiology Results Incoming - 07/02/2021 2:17 PM CDT PROCEDURE: PET CT SKULL BASE TO MID THIGHINDICATION: Evaluate other nonspecific abnormal finding in lung field. Abnormal CT scan. Pulmonary nodule. Initial treatment strategy. TECHNIQUE: Blood glucose measured at the time of injection was 98 mg/dL. The patient was then injected with 12.3 mCi of 18F-FDG, IV. Approximately one hour later, PET images were acquired from the skull base to the mid thighs. Corresponding, low dose, non-contrast CT scanning was performed as part of the attenuation correction process. Automated dose exposure control was utilized.COMPARISON: Outside chest CT 01/17/2021, showing a 1.5 cm right lung nodule.FINDINGS: Head and neck: No suspicious brain uptake. Physiologic uptake in the sinuses, orbits, nasopharynx, and oropharynx. Uptake by the larynx is normal. No suspicious neck lymph node uptake. Chest: No abnormal mediastinal, hilar, or axillary lymph node uptake. Right middle lobe nodule along the right heart border noted on comparison CT is unchanged in terms of size. Abnormal uptake is present, with an SUV of 2.8. No suspicious uptake in the left lung. Abdomen: Postoperative changes at the GE junction. There is focal uptake present in this region, with an SUV of 6.3. Physiologic uptake in the spleen, pancreas, liver, and adrenal glands. No abnormal retroperitoneal or mesenteric lymph node uptake. Pelvis: Physiologic bowel uptake. No abnormal pelvic lymph node uptake. Review of the osseous structures demonstrates no suspicious uptake. IMPRESSION: 1. Findings concerning for a malignant right middle lobe pulmonary nodule.2. Focal uptake at the GE junction is suspicious for occult malignancy. However, given surrounding postoperative changes, this could be postprocedural. [facility]-[id number] POC glucose 2021-07-02 13:42:37 Test Item Value Reference Range Interpretation Comme [facility] POC glucose (test code = 69315-2) 98 mg/dL 65-99 [facility] [id number] 14:20:51 Test Item Value Reference Range Interpretation Comments Case number (test code = [id number]) Surgical pathology See link below for report (test code = PDF Lab Report [id number]) Result status (test code This is Final Report = [id number]) for [id number] [facility] [id number] 17:46:54 Test Item Value Reference Range Interpretation Comments Urine culture (test code = SEE COMMENT [id number]) [facility], [id number] 20:05:15 Test Item Value Reference Range Interpretation Comments Glucose, syringe (test code = 280 mg/dL 65-99 H 2345-7) Lab Interpretation (test code = Abnormal 13117-5) [facility]em[facility], [id number] 20:05:15 Test Item Value Reference Range Interpretation Comments Hemoglobin, syringe (test code = 11.9 g/dL 12.0-16.0 L 718-7) Lab Interpretation (test code = Abnormal 52034-7) [facility] AllenIon[facility] calcium, [id number] 20:05:15 Test Item Value Reference Range Interpretation Comments Ionized calcium, venous (test 1.48 mmol/L 1.11-1.32 H code = 60029-8) Lab Interpretation (test code = Abnormal 63598-2) [facility], [id number] 20:05:15 Test Item Value Reference Range Interpretation Comments Potassium, syringe See_Comment [Automat ed message] The (test code = 2007) system [facility] generated this result tra nsmitted reference range : 3.5 - 5.0 mEq/L. The refe rence range was not used to interpret this result as normal/abnormal . [facility], [id number] 20:05:15 Test Item Value Reference Range Interpretation Comments Sodium, syringe (test See_Comment L [Auto mated message] code = 2947-0) The system [facility] generated this result transmitted ref erence range: 135 - 14 8 mEq/L. The refe rence range was not u sed to interpret this result as normal/abnor mal. Lab Interpretation (test Abnormal code = 85560-4) [facility] blood gas, [id number] 20:05:15 Test Item Value Reference Range Interpretation Comments pH, venous (test code = 7.32-7.42 L 2746-6) pCO2, venous (test code See_Comment [Au tomated message] = 2020-) The system [employer] generated this result transmitted ref erence range: 45 - 51 mmHg. The reference r maxwell was not used to interpret this result as normal/abnor mal. pO2, venous (test code = See_Comment H [A utomated message] 2705-2) The system [employer] generated this result transmitted ref erence range: 25 - 40 mmHg. The reference r maxwell was not used to interpret this result as normal/abnor mal. Temperature, Celsius, Degrees C venous (test code = 8310-5) O2 saturation, venous 91 % 40-70 H (test code = 2711-0) pH, venous corrected (test code = 62366-8) pCO2, venous corrected mmHg (test code = 19123-2) pO2, venous corrected mmHg (test code = 45593-4) Base excess, venous -6 meq/L -2-2 L (test code = 1927-3) Lab Interpretation (test Abnormal code = 46565-0) [facility]2021-05-13 16:14:13Zackary Iyer MD 03/27/2021 11:14 AMAir[address] Location: OR Performed by: DEHYDROGENATION OPERATOR HEAD/AAAnesthesiologist: Zackary Iyer, MDResident/DEHYDROGENATION OPERATOR HEAD/AA: Alfredo Sharif CRNAAuthorized by: Zackary Iyer MD Urgency: ElectiveDifficult Airway: No Preoxygenated with 100% O2: Yes C-spine Precautions Maintained Throughout: Yes Mask Ventilation: Easy maskFinal Airway Type: Endotracheal airwayFinal Endotracheal Airway: ETTTechnique Used: Direct laryngoscopyInsertion Site: OralBlade Type: MillerLaryngoscope Blade/Videolaryngoscope Blade Size: 2ETT Size (mm): 7.0Measured from: TeethETT to Teeth (cm): 21Placement Verified by: CO2 detection Laryngoscopic view: Grade IIa - partial view of glottisRapid Sequence Induction (RSI): No Modified RSI: No Number of Attempts at Approach: 1 Grade 2a view with [facility]PMethod[facility] HospitalCOVID-19 qualitative [id number] 21:22:49 Test Item Value Reference Range Interpretation Comments Interpretation (test code = 4881831) COVID-19 qualitative RT-PCR Not-Detected Not-Detected result (test code = 99167-9) COVID-19 qualitative RT-PCR See link below for (test code = 7070) PDF Lab Report Maria E ButcherARS-CoV-2 (COVID-19) RNA [Presence] in Respiratory specimen by JOE with probe [id number] 16:22:33 Test Item Value Reference Range Interpretation Comments SARS-CoV-2 (COVID-19) RNA Not detected Not-Detected [Presence] in Respiratory specimen by JOE with probe detection (test code = 13070-7) Whether patient is employed in a healthcare setting (test code = 58084-4) Whether the patient has symptoms related to condition of interest (test code = 27338-0) Patient was hospitalized because of this condition (test code = 90621-7) Whether the patient was admitted to intensive care unit (ICU) for condition of interest (test code = 92273-6) Whether patient resides in a congregate care setting (test code = 63061-9) SARS-CoV-2 (COVID-19) RNA [Presence] in Respiratory specimen by JOE with probe [id number] 16:13:50 Test Item Value Reference Range Interpretation Comments SARS-CoV-2 (COVID-19) RNA Not detected Not-Detected [Presence] in Respiratory specimen by JOE with probe detection (test code = 88380-2) CT Chest External [id number] 16:11:22This exam was not acquired at a [facility] facility and has not been interpreted by a [employer] Provider. The exam was imported into our imaging system.[facility] External [id number] 16:10:18This exam was not acquired at a [facility] facility and has not been interpreted by a [employer] Provider. The exam was imported into our imaging system.[facility] Neck External [id number] 16:08:40 This exam was not acquired at a [facility] facility and has not been interpreted by a [employer] Provider. The exam was imported into our imaging system. [facility]
--- NOTE | 2021-07-14 21:31 | RAD REPORT ---
EXAM DESCRIPTION: Johnnie Single View07/14/2021 9:18 pm CLINICAL HISTORY: Congestion COMPARISON: 1999 FINDINGS: [id number] bilateral pulmonary opacities. Moderate hiatal hernia The heart is normal size IMPRESSION: Mild to moderate bilateral pulmonary opacities probably pneumonia
[2021-07-14] MEDS ORDERED: METHYLPREDNISOLONE 125 MG INJ ONE (22:16)
[2021-07-14] MEDS ORDERED: NA CHLORIDE 0.9% 1,000 ML ONE (22:17)
[2021-07-14] MEDS ORDERED: NA CHLORIDE 0.9% 250 ML ONE (22:17)
[2021-07-14] MEDS ORDERED: AZITHROMYCIN 500 MG INJ IVPB ONE (22:17)
[2021-07-14 22:18] LABS: Absolute Lymphocytes (CBC) 0.6 K/uL (0.7-4.9); Basophils % 0.3 % (0-1.3); Hematocrit 38.9 % (36.0-45.0); Lymphocytes % 2.5 % (15.3-44.8); RBC Red Blood Cell Count 4.47 M/uL (3.86-4.86)
[2021-07-14 22:22] LABS: Protime INR 1.2
[2021-07-14 23:08] LABS: ALT/SGPT 122 U/L (12-78); AST/SGOT 121 U/L (15-37); Albumin 2.6 g/dL (3.4-5.0); Alkaline Phosphatase 87 U/L (45-117); BUN Blood Urea Nitrogen 20 mg/dL (7-18); Bicarbonate 27 mmol/L (21-32); Bilirubin Direct 0.1 mg/dL (0-0.2); Bilirubin Total 0.3 mg/dL (0.2-1.0); Ferritin 291.3 ng/mL (8-388); Glucose Level 210 mg/dL (74-106); Lipase 60 U/L (73-393); Protein, Total 7.5 g/dL (6.4-8.2); Sodium Level 131 mmol/L (136-145); Troponin (Emerg Dept Use Only) < 0.02 ng/mL (0.0-0.045)
[2021-07-14 23:11] LABS: SARS-COV-2 RT PCR POSITIVE (NEGATIVE)
[2021-07-14 23:16] LABS: Blood Morphology Comment NOT SEEN (NOT SEEN); Platelet Estimate ADEQ
--- NOTE | 2021-07-14 23:40 | EDPHYS ---
Physician Documentation [facility] Name: Dianne Bone Age: 80 yrs Sex: Female : 1940 Arrival Date: 07/14/2021 Time: 19:34 Bed 26 Private MD: ED Physician Hemalatha Leigh HPI: 07/14 21:41 This 80 yrs old Female presents to ER via Wheelchair with complaints of ma2 Cough, Shortness Of Breath, -pneumonia in RT lung. 21:41 The patient or guardian reports cough. Onset: The symptoms/episode began/occurred ma2 gradually, 2 day(s) ago. Severity of symptoms: At their worst the symptoms were mild, in the emergency department the symptoms are unchanged. Associated signs and symptoms: Pertinent negatives: diarrhea, fever, nausea, sore throat. The patient has not experienced similar symptoms in the past. hs + covid 2 weeks ago . Historical: - Allergies: 19:48 Floxin; hb - Home Meds: 19:48 divan 160 [Active]; Synthroid Oral [Active]; hb - PMHx: 19:48 Hypertension; Thyroid problem; hb - Immunization history:: Adult Immunizations up to date. - Social history:: Smoking status: Patient denies any tobacco usage or history of. - Family history:: not pertinent. ROS: 21:41 Constitutional: Negative for fever, chills, and weight loss. ma2 21:41 All other systems are negative. Exam: 21:41 Constitutional: This is a well developed, well nourished patient who is awake, alert, ma2 and in no acute distress. Head/Face: Normocephalic, atraumatic. Eyes: Pupils equal round and reactive to light, extra-ocular motions intact. Lids and lashes normal. Conjunctiva and sclera are non-icteric and not injected. Cornea within normal limits. Periorbital areas with no swelling, redness, or edema. ENT: Nares patent. No nasal discharge, no septal abnormalities noted. Tympanic membranes are normal and external auditory canals are clear. Oropharynx with no redness, swelling, or masses, exudates, or evidence of obstruction, uvula midline. Mucous membranes moist. Neck: Trachea midline, no thyromegaly or masses palpated, and no cervical lymphadenopathy. Supple, full range of motion without nuchal rigidity, or vertebral point tenderness. No Meningismus. Chest/axilla: Normal chest wall appearance and motion. Nontender with no deformity. No lesions are appreciated. Cardiovascular: Regular rate and rhythm with a normal S1 and S2. No gallops, murmurs, or rubs. Normal PMI, no JVD. No pulse deficits. Respiratory: spo2 is 88 on RA, Lungs have equal breath sounds bilaterally, clear to auscultation and percussion. No rales, rhonchi or wheezes noted. No increased work of breathing, no retractions or nasal flaring. Abdomen/GI: Soft, non-tender, with normal bowel sounds. No distension or tympany. No guarding or rebound. No evidence of tenderness throughout. Back: No spinal tenderness. No costovertebral tenderness. Full range of motion. Skin: Warm, dry with normal turgor. Normal color with no rashes, no lesions, and no evidence of cellulitis. MS/ Extremity: Pulses equal, no cyanosis. Neurovascular intact. Full, normal range of motion. Neuro: Awake and alert, GCS 15, oriented to person, place, time, and situation. Cranial nerves II-XII grossly intact. Motor strength 5/5 in all extremities. Sensory grossly intact. Cerebellar exam normal. Normal gait. Vital Signs: 19:46 BP 96 / 78; Pulse 86; Resp 24; Temp 99.5(TE); Pulse Ox 89% on R/A; Weight 71.21 kg; hb Height 5 ft. 2 in. (157.48 cm); Pain 0/10; 21:21 BP 113 / 85 LA Sitting (auto/reg); Pulse 68 MON; Resp 18 S; Temp 98.3(O); Pulse Ox 93% mb4 on 2 lpm NC; Weight 71.21 kg (R); Height 5 ft. 2 in. (157.48 cm) (R); 21:56 BP 116 / 65 LA Sitting (auto/reg); Pulse 66 MON; Resp 18 S; Pulse Ox 93% on 2 lpm NC; mb4 23:13 BP 108 / 87; Pulse 72; Resp 21; Pulse Ox 100% 2 lpm ; ap3 23:57 BP 119 / 71; Pulse 94; Resp 18; Temp 98.2; Pulse Ox 95% on 2 lpm NC; ch4 21:21 Body Mass Index 28.72 (71.21 kg, 157.48 cm) mb4 MDM: 21:41 Differential Diagnosis: Bronchitis Influenza Upper Respiratory Infection Sinusitis ok2 Pharyngitis. 23:39 Data reviewed: vital signs, nurses notes. Counseling: I had a detailed discussion with ma2 the patient and/or guardian regarding: the historical points, exam findings, and any diagnostic results supporting the discharge/admit diagnosis, the presence of at least one elevated blood pressure reading (>120/80) during this emergency department visit, the need for outpatient follow up. Response to treatment: the patient's symptoms have markedly improved after treatment. 23:40 Patient medically screened. [facility] 07/14 21:04 Order name: BMP [facility] 07/14 21:04 Order name: Blood Culture Adult (2) [facility] 07/14 21:04 Order name: C-Reactive Protein; Complete Time: 23:37 [facility] 07/14 21:04 Order name: CBC with Diff; Complete Time: 23:37 [facility] 07/14 21:04 Order name: Ferritin; Complete Time: 23:37 [facility] 07/14 21:04 Order name: LFT's; Complete Time: 23:37 [facility] 07/14 21:04 Order name: Lactate; Complete Time: 22:49 [facility] 07/14 21:04 Order name: Lipase; Complete Time: 23:37 [facility] 07/14 21:04 Order name: PT-INR; Complete Time: 22:28 [facility] 07/14 21:04 Order name: Procalcitonin; Complete Time: 00:18 [facility] 07/14 21:04 Order name: Ptt, Activated; Complete Time: 22:28 [facility] 07/14 21:04 Order name: Strep; Complete Time: 22:28 [facility] 07/14 21:04 Order name: Troponin (emerg Dept Use Only); Complete Time: 23:37 [facility] 07/14 21:04 Order name: Urine Microscopic Only [facility] 07/14 21:05 Order name: Basic Metabolic Panel; Complete Time: 23:37 [facility] 07/14 21:05 Order name: Blood Culture [facility] 07/14 22:14 Order name: Throat Culture [facility] 07/14 22:30 Order name: Manual Differential; Complete Time: 23:37 [facility] 07/14 23:11 Order name: COVID-19/FLU A+B; Complete Time: 23:37 EDMS 07/15 00:17 Order name: Urine Dipstick-Ancillary EDMS 07/15 01:50 Order name: Lactate Sepsis 2 HR Follow-up EDMS 07/15 01:55 Order name: CBC with Automated Diff EDMS 07/15 01:56 Order name: Comprehensive Metabolic Panel EDMS 07/15 01:56 Order name: Lipid Profile EDMS 07/15 01:56 Order name: C-Reactive Protein EDMS 07/15 01:56 Order name: T4 Free EDMS 07/15 01:56 Order name: Thyroid Stimulating Hormone EDMS 07/15 01:56 Order name: Ferritin EDMS 07/15 01:59 Order name: D-Dimer EDMS 07/15 02:26 Order name: Hemoglobin A1c EDMS 07/15 02:59 Order name: Procalcitonin EDMS 07/15 10:43 Order name: Glucose, Ancillary Testing EDMS 07/15 15:02 Order name: Glucose, Ancillary Testing EDMS 07/15 21:29 Order name: Glucose, Ancillary Testing EDMS 07/16 02:40 Order name: CBC with Automated Diff EDMS 07/16 02:43 Order name: D-Dimer EDMS 07/16 02:58 Order name: Comprehensive Metabolic Panel EDMS 07/16 02:58 Order name: C-Reactive Protein EDMS 07/16 02:58 Order name: Ferritin EDMS 07/16 07:52 Order name: Urine Culture EDMS 07/16 08:02 Order name: Glucose, Ancillary Testing EDMS 07/16 13:21 Order name: Glucose, Ancillary Testing EDMS 07/16 16:45 Order name: Glucose, Ancillary Testing EDMS 07/16 21:58 Order name: Glucose, Ancillary Testing EDMS 07/17 03:12 Order name: CBC with Automated Diff EDMS 07/17 03:16 Order name: D-Dimer EDMS 07/17 03:28 Order name: Comprehensive Metabolic Panel EDMS 07/17 03:28 Order name: C-Reactive Protein EDMS 07/17 03:28 Order name: Ferritin EDMS 07/17 08:09 Order name: Glucose, Ancillary Testing EDMS 07/17 12:56 Order name: Glucose, Ancillary Testing EDMS 07/17 17:44 Order name: Glucose, Ancillary Testing EDMS 07/17 21:17 Order name: Glucose, Ancillary Testing EDGA 07/18 04:43 Order name: CBC with Automated Diff EDMS 07/18 04:47 Order name: D-Dimer EDMS 07/18 05:10 Order name: Comprehensive Metabolic Panel EDMS 07/18 05:10 Order name: C-Reactive Protein EDMS 07/18 05:10 Order name: Ferritin EDMS 07/18 08:37 Order name: Glucose, Ancillary Testing EDMS 07/18 11:58 Order name: Glucose, Ancillary Testing EDGA 07/14 21:04 Order name: CXR XRAY; Complete Time: 22:12 ma2 07/14 21:04 Order name: EKG; Complete Time: 21:05 ma2 07/14 21:04 Order name: Cardiac monitoring; Complete Time: 21:25 ma2 07/14 21:04 Order name: Droplet/Contact Precautions; Complete Time: 21:06 ma2 07/14 21:04 Order name: EKG - Nurse/Tech; Complete Time: 21:25 ma2 07/14 21:04 Order name: IV Start; Complete Time: 21:25 ma2 07/14 21:04 Order name: Labs collected and sent; Complete Time: 21:25 ma2 07/14 21:04 Order name: O2 Per Protocol; Complete Time: 21:06 ma2 07/14 21:04 Order name: O2 Sat Monitoring; Complete Time: 21:06 ma2 07/14 21:04 Order name: Urine Dipstick-Ancillary (obtain specimen); Complete Time: 00:11 ma2 07/15 08:40 Order name: [facility] 07/17 08:33 Order name: [facility] Administered Medications: 22:09 Drug: AZITHromycin 500 mg Route: IVPB; Infused Over: 1 hrs; Site: right antecubital; ap3 23:39 Follow up: IV Status: Completed infusion; IV Intake: 250ml ap3 22:09 Drug: SOLU-Medrol (methylPrednisoLONE) 125 mg Route: IVP; Site: right antecubital; ap3 23:42 Follow up: Response: No adverse reaction ap3 22:10 Drug: NS 0.9% 1000 ml Route: IV; Rate: 1 bolus; Site: right antecubital; ap3 23:39 Follow up: IV Status: Completed infusion; IV Intake: 1000ml ap3 Disposition Summary: 07/14/21 23:40 Hospitalization Ordered Hospitalization Status: Inpatient Admission ma2 Provider: Constantin Deras ma2 Condition: Stable ma2 Problem: new ma2 Symptoms: are unchanged ma2 Bed/Room Type: Standard ma2 Location: Telemetry/MedSurg (Inpatient)(07/18/21 12:53) iw Room Assignment: 413(07/18/21 12:53) iw Diagnosis - Hypoxemia ma2 - Severe sepsis without septic shock ma2 - Other specified viral diseases - COVID - 19 ma2 - Other viral pneumonia ma2 Forms: - Medication Reconciliation Form ma2 - SBAR form ma2 Signatures: Dispatcher [employer] EDMS Ashlie Bush RN RN Glory Lan RN RN iw Kashif Sharma, RANGEL-C RANGEL-Elva Varghese RN RN Augusta Jarvis RN RN Hemalatha Leigh MD MD ma2 Aviva Stoll RN RN ap3 Corrections: (The following items were deleted from the chart) 21:06 21:04 [place] ordered. ma2 ap3 21:44 21:05 CORONAVIRUS+MR.LAB.BRZ ordered. EDMS EDMS 21:45 21:05 Influenza Screen (A \T\ B)+BA.LAB.BRZ ordered. EDMS EDMS 07/15 00:25 07/14 23:40 Telemetry/MedSurg (Inpatient) ma2 07/15 00:25 07/14 23:40 ma2 07/17 21:54 07/15 00:25 [facility] ER HOLD [facility] 07/17 21:54 07/15 00:25 ERHOLD- [facility] 07/17 21:58 21:54 Telemetry/MedSurg (Inpatient) [facility] 21:58 21:54 [facility] 07/18 12:53 07/17 21:58 [facility] ER HOLD iw 07/18 12:53 07/17 21:58 ERHOLD- [facility]
--- NOTE | 2021-07-14 23:40 | ER ---
Nurse's Notes [facility] Name: Dianne Bone Age: 80 yrs Sex: Female : 1940 Arrival Date: 07/14/2021 Time: 19:34 Bed 26 Private MD: Diagnosis: Hypoxemia;Severe sepsis without septic shock;Other specified viral diseases-COVID - 19;Other viral pneumonia Presentation: 07/14 19:46 Chief complaint: Tested COVID + last week, seen at [facility] last night, hb discharged with COVID pneumonia, today c/o worsening SOB. Coronavirus screen: Client presents with at least one sign or symptom that may indicate coronavirus-19. Standard/surgical mask placed on the client. Provider contacted for isolation considerations. Ebola Screen: No symptoms or risks identified at this time. Initial Sepsis Screen: Does the patient meet any 2 criteria? Yes No. Patient's initial sepsis screen is negative. Does the patient have a suspected source of infection? Yes:. Risk Assessment: Do you want to hurt yourself or someone else? Patient reports no desire to harm self or others. Onset of symptoms was July 14, 2021. 19:46 Method Of Arrival: Wheelchair 19:46 Acuity: DAMIAN 2 hb Triage Assessment: 21:39 Respiratory: Onset: The symptoms/episode began/occurred gradually, the patient has ap3 moderate shortness of breath. Historical: - Allergies: 19:48 Floxin; hb - Home Meds: 19:48 divan 160 [Active]; Synthroid Oral [Active]; hb - PMHx: 19:48 Hypertension; Thyroid problem; hb - Immunization history:: Adult Immunizations up to date. - Social history:: Smoking status: Patient denies any tobacco usage or history of. - Family history:: not pertinent. Screenin:38 Abuse screen: Denies threats or abuse. Nutritional screening: No deficits noted. ap3 Tuberculosis screening: No symptoms or risk factors identified. Fall Risk No fall in past 12 months (0 pts). No secondary diagnosis (0 pts). IV access (20 points). Ambulatory Aid- None/Bed Rest/Nurse Assist (0 pts). Gait- Weak (10 pts.). Mental Status- Oriented to own ability (0 pts). Total Damon Fall Scale indicates Low Risk Score (25-44 pts). Fall prevention measures have been instituted. Side Rails Up X 2 Placed close to Nursing Station Frequent Obs/Assesments occuring As available Patient and Family Educated on Fall Prevention Program and strategies. Assessment: 21:36 General: Appears in no apparent distress. comfortable, Behavior is calm, cooperative, ap3 appropriate for age, Reports feeling ill for. Pain: Denies pain. Neuro: Level of Consciousness is awake, alert, obeys commands, Oriented to person, place, time, situation, Appropriate for age Director Of Radio Services are equal bilaterally Moves all extremities. Gait is steady, Speech is normal. Cardiovascular: Denies chest pain, Rhythm is regular. Respiratory: Reports shortness of breath on exertion Airway is patent Respiratory effort is even, unlabored, Respiratory pattern is regular, symmetrical, Breath sounds are clear in left posterior upper lobe and right posterior upper lobe Breath sounds are diminished in left posterior lower lobe, right posterior middle lobe and right posterior lower lobe. GI: No signs and/or symptoms were reported involving the gastrointestinal system. : No signs and/or symptoms were reported regarding the genitourinary system. 23:13 Reassessment: Patient and/or family updated on plan of care and expected duration. Pain ap3 level reassessed. Patient is alert, oriented x 3, equal unlabored respirations, skin warm/dry/pink. Vital Signs: 19:46 BP 96 / 78; Pulse 86; Resp 24; Temp 99.5(TE); Pulse Ox 89% on R/A; Weight 71.21 kg; hb Height 5 ft. 2 in. (157.48 cm); Pain 0/10; 21:21 BP 113 / 85 LA Sitting (auto/reg); Pulse 68 MON; Resp 18 S; Temp 98.3(O); Pulse Ox 93% mb4 on 2 lpm NC; Weight 71.21 kg (R); Height 5 ft. 2 in. (157.48 cm) (R); 21:56 BP 116 / 65 LA Sitting (auto/reg); Pulse 66 MON; Resp 18 S; Pulse Ox 93% on 2 lpm NC; mb4 23:13 BP 108 / 87; Pulse 72; Resp 21; Pulse Ox 100% 2 lpm ; ap3 23:57 BP 119 / 71; Pulse 94; Resp 18; Temp 98.2; Pulse Ox 95% on 2 lpm NC; ch4 21:21 Body Mass Index 28.72 (71.21 kg, 157.48 cm) mb4 ED Course: 19:34 Patient arrived in ED. bp1 19:45 Arm band placed on. hb 19:48 Triage completed. hb 21:03 Hemalatha Leigh MD is Attending Physician. ma2 21:05 Aviva Stoll, RN is Primary Nurse. ap3 21:18 CXR XRAY In Process Unspecified. EDMS 21:25 COVID swab sent to lab. Flu and/or RSV swab sent to lab. Strep swab sent to lab. mb4 21:35 Inserted saline lock: 22 gauge in right antecubital area, using aseptic technique. mb4 Blood collected. 21:39 Patient has correct armband on for positive identification. Bed in low position. Call ap3 light in reach. Side rails up X2. monitoring engineer on. Pulse ox on. NIBP on. Door closed. Noise minimized. Warm blanket given. 21:40 Initial lab(s) drawn, by me, sent to lab. First set of blood cultures drawn by me. mb4 23:40 Constantin Deras DO is Hospitalizing Provider. ma2 07/15 00:18 Urine Dipstick-Ancillary Sent. ds4 00:18 Urine Microscopic Only Sent. ds4 07/16 08:01 Primary Nurse role handed off by Aviva Stoll, MONY sv 08:01 Lisandra Bills, MONY is Primary Nurse. sv 18:54 Primary Nurse role handed off by Lisandra Bills, MONY sv Administered Medications: 07/14 22:09 Drug: AZITHromycin 500 mg Route: IVPB; Infused Over: 1 hrs; Site: right antecubital; ap3 23:39 Follow up: IV Status: Completed infusion; IV Intake: 250ml ap3 22:09 Drug: SOLU-Medrol (methylPrednisoLONE) 125 mg Route: IVP; Site: right antecubital; ap3 23:42 Follow up: Response: No adverse reaction ap3 22:10 Drug: NS 0.9% 1000 ml Route: IV; Rate: 1 bolus; Site: right antecubital; ap3 23:39 Follow up: IV Status: Completed infusion; IV Intake: 1000ml ap3 Intake: 23:39 IV: 250ml; Total: 250ml. ap3 23:39 IV: 1000ml; Total: 1250ml. ap3 Outcome: 23:40 Decision to Hospitalize by Provider. ma2 07/18 15:16 Patient left the ED. iw Signatures: Dispatcher [employer] Lisandra Reynaga, RN RN Glory Briseno RN RN Dale Rsusell ds4 Augusta Jarvis RN RN Hemalatha Quick MD MD ma2 Aviva Stoll RN RN ap3 Yoly Jarvis 4 Edith Cabral Christina, RN RN ch4
[2021-07-15 00:17] LABS: Urine Blood Negative (Negative); Urine Glucose Negative (Negative); Urine Protein 1+ (Negative); Urine Specific Gravity 1.015 (1.005-1.030)
[2021-07-15] MEDS ORDERED: D50W 25 GM/50 ML SYRINGE IV PRN (00:57)
[2021-07-15] MEDS ORDERED: ACETAMINOPHEN 500 MG TAB PO PRN (00:57)
[2021-07-15] MEDS ORDERED: ONDANSETRON 4 MG/2 ML VIAL IV PRN (00:57)
[2021-07-15] MEDS ORDERED: GLUCAGON 1 MG/VIAL IM PRN (00:57)
--- NOTE | 2021-07-15 01:00 | P.HP ---
Certification for Inpatient Patient admitted to: Inpatient With expected LOS: >2 Midnights Patient will require the following post-hospital care: None Practitioner: I am a practitioner with admitting privileges, knowledge of patient current condition, hospital course, and medical plan of care. Services: Services provided to patient in accordance with Admission requirements found in Title 42 Section 412.3 of the Code of Federal Regulations Patient History Date of Service: 07/15/21 Primary Care Provider: Radha Sparrow Reason for admission: COVID-19 pneumonia History of Present Illness: 80-year-old female with history of hypertension, hypothyroidism presents emergency department for shortness of breath. Patient reports testing positive for Covid on 07/05/2021 with progressive shortness of breath over the course of the last few days. Patient was evaluated in the emergency department labs were significant for white blood cell count 22.8 sodium 131 BUN 20 GFR 46 glucose 210 lactic acid 2.1 AST 121 ALT 122 C-reactive protein 153 procalcitonin 0.43 patient with history of frequent urinary tract infections, trace leuks on urinalysis, urine microscopic pending. Patient swabbed Covid positive, chest x- ray demonstrates mild to moderate bilateral pulmonary opacities likely representing pneumonia patient not vaccinated. Will admit for further evaluation and management. Allergies ofloxacin [From Floxin] Allergy (Verified 05/03/17 08:19) blisters in mouth Home Medications: Levothyroxine Sodium [Unithroid] 50 mcg PO DAILY 06/02/16 Valsartan [Diovan*] 160 mg PO [id number] 06/02/16 - Past Medical/Surgical History Diabetic: No -: HTN -: Hypothyroidism -: Iron deficiency anemia -: Hiatal hernia -: Umbilical hernia -: Inguinal hernia -: Left renal cyst -: Cholecystectomy -: Hysterectomy -: Bladder repair -: Appendectomy -: Hernia repair Psychosocial/ Personal History: She is , has 2 children, she is retired teacher - Family History Father -: Hypertension - Social History Smoking Status: Never smoker Alcohol use: No CD- Drugs: No Caffeine use: Yes Place of Residence: Home Review of Systems 10-point ROS is otherwise unremarkable General: Weakness, Malaise Respiratory: Cough, Dry, Shortness of Breath Physical Examination - Physical Exam General: Alert, In no apparent distress, Oriented x3 HEENT: Atraumatic, PERRLA, Mucous membr. moist/pink, EOMI, Sclerae nonicteric Neck: Supple, 2+ carotid pulse no bruit, No LAD, Without JVD or thyroid abnormality Respiratory: Clear to auscultation bilaterally, Normal air movement Cardiovascular: Regular rate/rhythm, Normal S1 S2 Gastrointestinal: Normal bowel sounds, No tenderness Musculoskeletal: No tenderness Integumentary: No rashes Neurological: Normal speech, Normal strength at 5/5 x4 extr, Normal tone, Normal affect - Studies Laboratory Data (last 24 hrs) 07/14/21 21:48: PT 13.8 H, INR 1.20, APTT 27.5 07/14/21 21:48: WBC 22.80 H*, Hgb 13.0, Hct 38.9, Plt Count 348 07/14/21 21:48: Sodium 131 L, Potassium 4.0, BUN 20 H, Creatinine 1.14, Glucose 210 H, Total Bilirubin 0.3, AST 121 H, ALT 122 H, Alkaline Phosphatase 87, Lipase 60 L Microbiology Data (last 24 hrs): 07/14/21 21:40 Throat Group A Streptococcus Rapid Screen - Final Assessment and Plan - Plan Assessment: Acute hypoxic respiratory failure secondary to COVID-19 pneumonia with leukocytosis Hyperglycemiareports diet controlled diabetes most type II Hypertension Hypothyroidism Plan: Acute hypoxic respiratory failure secondary to COVID-19 pneumonia with leukocytosis: Continue with IV steroids, oral supplements, supplemental oxygen as needed, respiratory and pulmonary consults in place. Patient with significant leukocytosis we will continue with Rocephin, Zithromax at this time. Trend CRP, ferritin, D-dimer levels. Will obtain procalcitonin level as well. Hyperglycemiareports diet controlled diabetes most type II: Blood sugar 210 on admission, will start patient on ADA diet, sliding scale insulin therapy. Hypertension: Obtain and continue home medications, adjust as necessary Hypothyroidism:Obtain and continue home medications, adjust as necessary DVT PPX: Lovenox Code status: Full Discharge Plan: Home Plan to discharge in: Greater than 2 days - Advance Directives Does patient have a Living Will: No Does patient have a Durable POA for Healthcare: No - Code Status/Comfort Care Code Status Assessed: Yes (Full code) Critical Care: No Time Spent Managing Pts Care (In Minutes): 55
[2021-07-15 01:07] LABS: Urine Urothelial Cells <5 /HPF (NONE SEEN)
[2021-07-15 01:08] LABS: Urine Bacteria 20-50 /HPF (<20); Urine RBC <5 /HPF (NONE SEEN)
[2021-07-15 01:27] VITALS: BMI 28.5
[2021-07-15 01:38] LABS: Absolute Lymphocytes (CBC) 0.5 K/uL (0.7-4.9); Basophils % 0.2 % (0-1.3); Hematocrit 34.2 % (36.0-45.0); Lymphocytes % 2.3 % (15.3-44.8); MPV 7.8 fL (7.6-11.3); RBC Red Blood Cell Count 3.94 M/uL (3.86-4.86)
[2021-07-15 01:54] LABS: Albumin 2.2 g/dL (3.4-5.0); Bilirubin Total 0.3 mg/dL (0.2-1.0); Ferritin 253.6 ng/mL (8-388); Potassium 3.9 mmol/L (3.5-5.1); Protein, Total 6.3 g/dL (6.4-8.2); Thyroid Stimulating Hormone 0.733 uIU/mL (0.360-3.740)
--- NOTE | 2021-07-15 06:55 | P.PN ---
Subjective Date of Service: 07/15/21 Primary Care Provider: Radha Sparrow Chief Complaint: COVID-19 pneumonia Subjective: Improving (Currently on 3 L per nasal cannula) Physical Examination - Vital Signs Temperature: 98.2 F Blood Pressure: 113/68 Pulse: 57 Respirations: 19 Pulse Ox (%): 96 - Studies Laboratory Data (last 24 hrs) 07/14/21 21:48: PT 13.8 H, INR 1.20, APTT 27.5 07/14/21 21:48: WBC 22.80 H*, Hgb 13.0, Hct 38.9, Plt Count 348 07/14/21 21:48: Sodium 131 L, Potassium 4.0, BUN 20 H, Creatinine 1.14, Glucose 210 H, Total Bilirubin 0.3, AST 121 H, ALT 122 H, Alkaline Phosphatase 87, Lipase 60 L Microbiology Data (last 24 hrs): 07/14/21 21:40 Throat Group A Streptococcus Rapid Screen - Final Assessment & Plan Discharge Plan: Home Plan to discharge in: 24 Hours Physician Review Additional Text: COVID: Positive Chest x-ray: COMPARISON: 1999 FINDINGS: [id number] bilateral pulmonary opacities. Moderate hiatal hernia The heart is normal size IMPRESSION: Mild to moderate bilateral pulmonary opacities probably pneumonia Liver ultrasound: COMPARISON: None. FINDINGS: A cholecystectomy. The biliary tree is normal caliber. Borderline hepatomegaly. Liver has a mildly increased echotexture. IMPRESSION: Mildly increased hepatic echotexture probably fatty infiltration Borderline hepatomegaly Physical exam: General: Alert, In no apparent distress, Oriented x3 HEENT: Atraumatic, PERRLA, Mucous membr. moist/pink, EOMI, Sclerae nonicteric Neck: Supple, 2+ carotid pulse no bruit, No LAD, Without JVD or thyroid abnormality Respiratory: Overall clear. Patient on 3 L per nasal cannula. Cardiovascular: Regular rate/rhythm, Normal S1 S2 Gastrointestinal: Normal bowel sounds, No tenderness Musculoskeletal: No tenderness Integumentary: No rashes Neurological: Normal speech, Normal strength at 5/5 x4 extr, Normal tone, Normal affect Impression: Acute hypoxic respiratory failure secondary to COVID-19 pneumonia with UTI Diabetes mellitus type 2 diet controlled with hyperglycemia Hypertension Hypothyroidism GERD with hiatal hernia Elevated liver function with fatty liver Plan: Acute hypoxic respiratory failure secondary to COVID-19 pneumonia with UTI: Slow improvement noted. Currently on 3 L per nasal cannula. Respiratory to continue to wean off to maintain sats above 93%. CRP improved. Ferritin improved. Continue monitor CRP and ferritin. Continue IV steroids and supplements. Patient on DVT prophylaxisLovenox. Leukocytosis improved. Continue with Rocephin for UTI. Await culture results. Physical therapy to assess ambulation. Anticipate improvement over the next 24 hours with possible discharge tomorrow. Social work to help arrange for oxygen at discharge. Diabetes mellitus type II diet controlled with hyperglycemia: Hemoglobin A1c 6.4. Continue with Accu-Cheks and sliding scale. Hypertension: Blood pressure stable off valsartan. Continue to hold medication Hypothyroidism: Restart home medication. Verify home meds GERD with hiatal hernia: Continue Pepcid Elevated liver function with fatty liver: We will monitor this closely. Improvement noted DVT PPX: Lovenox Code status: Full Advance care planning: Home at discharge Time Spent Managing Pts Care (In Minutes): 55
[2021-07-15] MEDS: INSULIN -REGULAR HUMAN 50 UNIT/0.5 ML ML SQ SCH ×4 (07:30→21:00)
[2021-07-15] MEDS: METHYLPREDNISOLONE 40 MG INJ IV SCH ×2 (08:00→17:00)
--- NOTE | 2021-07-15 08:40 | RAD REPORT ---
EXAM DESCRIPTION: US - Abdomen Exam Limited - 07/15/2021 2:50 am CLINICAL HISTORY: Abdominal pain. COMPARISON: None. FINDINGS: A cholecystectomy. The biliary tree is normal caliber. Borderline hepatomegaly. Liver has a mildly increased echotexture. IMPRESSION: Mildly increased hepatic echotexture probably fatty infiltration Borderline hepatomegaly
[2021-07-15] MEDS: FAMOTIDINE 20 MG TAB PO SCH ×2 (09:00→21:00)
[2021-07-15] MEDS: VITAMIN D 1000 UNIT TAB PO SCH (09:00)
[2021-07-15] MEDS ORDERED: AZITHROMYCIN IV 500 MG in NA CHLORIDE 0.9% 250 ML IVPB SCH (09:00)
[2021-07-15] MEDS: THIAMINE HCL 100 MG TABLET PO SCH (09:00)
[2021-07-15] MEDS: ENOXAPARIN 40 MG/0.4 ML SQ SCH (09:00)
[2021-07-15] MEDS ORDERED: CEFTRIAXONE 1 GM/NS 50 ML 1 GM/50 ML BAG IV SCH (09:00)
[2021-07-15] MEDS: ASPIRIN EC 81 MG TAB PO SCH (09:00)
[2021-07-15] MEDS: ASCORBIC ACID 500 MG TABLET PO SCH ×4 (09:00→21:00)
[2021-07-15] MEDS: ZINC SULFATE 220 MG CAP PO SCH (09:00)
[2021-07-15] MEDS: CEFTRIAXONE/SWI 1gm 1 GM/10 ML SYR IV SCH (09:00)
[2021-07-15] MEDS ORDERED: ASCORBIC ACID 500 MG TABLET ONE ×4 (10:24→21:47)
[2021-07-15] MEDS ORDERED: VITAMIN D 1000 UNIT TAB ONE (10:24)
[2021-07-15] MEDS ORDERED: ASPIRIN EC 81 MG TAB PO ONE (10:24)
[2021-07-15] MEDS ORDERED: METHYLPREDNISOLONE 40 MG INJ ONE ×2 (10:24→18:47)
[2021-07-15] MEDS ORDERED: THIAMINE HCL 100 MG TABLET ONE (10:24)
[2021-07-15] MEDS ORDERED: ZINC SULFATE 220 MG CAP ONE (10:24)
[2021-07-15] MEDS ORDERED: FAMOTIDINE 20 MG TAB ONE ×2 (10:25→21:47)
[2021-07-15] MEDS ORDERED: ENOXAPARIN 40 MG/0.4 ML SQ ONE (10:26)
[2021-07-15] MEDS ORDERED: CEFTRIAXONE/SWI 1gm 1 GM/10 ML SYR ONE (10:28)
[2021-07-15] MEDS ORDERED: INSULIN -REGULAR HUMAN 50 UNIT/0.5 ML ML ONE ×2 (12:18→21:48)
[2021-07-15] MEDS: MELATONIN 5 MG TABLET PO PRN (21:33)
[2021-07-15] MEDS: BENZONATATE 100 MG CAP PO PRN (21:33)
[2021-07-15] MEDS ORDERED: MELATONIN 5 MG TABLET PO ONE (21:47)
[2021-07-15] MEDS ORDERED: BENZONATATE 100 MG CAP PO ONE (21:47)
[2021-07-16 02:37] LABS: Absolute Lymphocytes (CBC) 0.7 K/uL (0.7-4.9); Basophils % 0.3 % (0-1.3); Hematocrit 33.5 % (36.0-45.0); RBC Red Blood Cell Count 3.86 M/uL (3.86-4.86)
[2021-07-16 02:57] LABS: Albumin 2.1 g/dL (3.4-5.0); Bilirubin Total 0.2 mg/dL (0.2-1.0); Ferritin 248.5 ng/mL (8-388); Potassium 4.4 mmol/L (3.5-5.1); Protein, Total 6.1 g/dL (6.4-8.2)
[2021-07-16] MEDS ORDERED: METHYLPREDNISOLONE 125 MG INJ ONE ×2 (03:43→08:21)
[2021-07-16] MEDS: LEVOTHYROXINE SOD 0.05 MG TABLET PO SCH (06:30)
--- NOTE | 2021-07-16 06:38 | P.PN ---
Subjective Date of Service: 07/16/21 Primary Care Provider: Radha Sparrow Chief Complaint: COVID-19 pneumonia Subjective: Other (Patient currently on 8 L per nasal cannula. Still with cough) Physical Examination - Vital Signs Temperature: 98.7 F Blood Pressure: 112/40 Pulse: 58 Respirations: 16 Pulse Ox (%): 92 - Studies Microbiology Data (last 24 hrs): 07/14/21 23:10 Blood - Blood Anaerobic Blood Culture - Final Assessment & Plan Discharge Plan: Home Plan to discharge in: Greater than 2 days Physician Review Additional Text: COVID: Positive Chest x-ray: COMPARISON: 1999 FINDINGS: [id number] bilateral pulmonary opacities. Moderate hiatal hernia The heart is normal size IMPRESSION: Mild to moderate bilateral pulmonary opacities probably pneumonia Liver ultrasound: COMPARISON: None. FINDINGS: A cholecystectomy. The biliary tree is normal caliber. Borderline hepatomegaly. Liver has a mildly increased echotexture. IMPRESSION: Mildly increased hepatic echotexture probably fatty infiltration Borderline hepatomegaly Physical exam: General: Alert, In no apparent distress, Oriented x3 HEENT: Neck supple Respiratory: Overall clear. Increase oxygen intake noted. Currently on 8 L Cardiovascular: Regular rate/rhythm, Normal S1 S2 Gastrointestinal: Normal bowel sounds, No tenderness Musculoskeletal: No tenderness Integumentary: No rashes Neurological: Normal speech, Normal strength at 5/5 x4 extr, Normal tone, Normal affect Impression: Acute hypoxic respiratory failure secondary to COVID-19 pneumonia with UTI Diabetes mellitus type 2 diet controlled with hyperglycemia Hypertension Hypothyroidism GERD with hiatal hernia Elevated liver function with fatty liver Plan: Acute hypoxic respiratory failure secondary to COVID-19 pneumonia with UTI: Patient now on 8 L per nasal cannula. White count still elevated. Patient remains on Rocephin for possible underlying UTI complicated with COVID-19. Will decrease IV Solu-Medrol. Continue DVT prophylaxis. Respiratory to continue to wean off oxygen to maintain sats above 93%. Continue to monitor CRP and ferritin. Physical therapy to ambulate. Continue supplementation. Continue to monitor closely. Continue to reassess. Await recommendations from pulmonology Diabetes mellitus type II diet controlled with hyperglycemia: Hemoglobin A1c 6.4. Continue with Accu-Cheks and sliding scale. Hypertension: Blood pressure stable off valsartan. Continue to hold medication Hypothyroidism: Continue home medication GERD with hiatal hernia: Continue Pepcid Elevated liver function with fatty liver: We will monitor this closely. Improvement noted DVT PPX: Lovenox Code status: Full Advance care planning: Home at discharge Time Spent Managing Pts Care (In Minutes): 55
[2021-07-16] MEDS: INSULIN -REGULAR HUMAN 50 UNIT/0.5 ML ML SQ SCH ×4 (07:30→21:53)
[2021-07-16] MEDS ORDERED: ASCORBIC ACID 500 MG TABLET ONE ×4 (08:21→22:00)
[2021-07-16] MEDS ORDERED: ZINC SULFATE 220 MG CAP ONE (08:22)
[2021-07-16] MEDS ORDERED: FAMOTIDINE 20 MG TAB ONE ×2 (08:22→22:00)
[2021-07-16] MEDS ORDERED: THIAMINE HCL 100 MG TABLET ONE (08:22)
[2021-07-16] MEDS ORDERED: VITAMIN D 1000 UNIT TAB ONE (08:22)
[2021-07-16] MEDS ORDERED: ASPIRIN EC 81 MG TAB PO ONE (08:22)
[2021-07-16] MEDS ORDERED: CEFTRIAXONE/SWI 1gm 1 GM/10 ML SYR ONE (08:23)
[2021-07-16] MEDS ORDERED: ENOXAPARIN 40 MG/0.4 ML SQ ONE (08:23)
[2021-07-16] MEDS ORDERED: INSULIN -REGULAR HUMAN 50 UNIT/0.5 ML ML ONE ×3 (08:50→22:12)
[2021-07-16] MEDS: ENOXAPARIN 40 MG/0.4 ML SQ SCH (09:00)
[2021-07-16] MEDS: THIAMINE HCL 100 MG TABLET PO SCH (09:00)
[2021-07-16] MEDS: METHYLPREDNISOLONE 40 MG INJ IV SCH (09:00)
[2021-07-16] MEDS: VITAMIN D 1000 UNIT TAB PO SCH (09:00)
[2021-07-16] MEDS: ZINC SULFATE 220 MG CAP PO SCH (09:00)
[2021-07-16] MEDS: FAMOTIDINE 20 MG TAB PO SCH ×2 (09:00→21:00)
[2021-07-16] MEDS: CEFTRIAXONE/SWI 1gm 1 GM/10 ML SYR IV SCH (09:00)
[2021-07-16] MEDS: ASPIRIN EC 81 MG TAB PO SCH (09:00)
[2021-07-16] MEDS: ASCORBIC ACID 500 MG TABLET PO SCH ×4 (09:00→21:00)
[2021-07-16] MEDS: METHYLPREDNISOLONE 125 MG INJ IV SCH (16:35)
[2021-07-16] MEDS ORDERED: METHYLPREDNISOLONE 40 MG INJ ONE (16:44)
[2021-07-16] MEDS ORDERED: METHYLPREDNISOLONE 125 MG INJ IV SCH (17:00)
[2021-07-17] MEDS: METHYLPREDNISOLONE 125 MG INJ IV SCH ×3 (01:00→17:00)
[2021-07-17] MEDS ORDERED: METHYLPREDNISOLONE 40 MG INJ ONE ×3 (02:05→17:19)
[2021-07-17 03:08] LABS: Basophils % 0.1 % (0-1.3); Hematocrit 35.5 % (36.0-45.0); Lymphocytes % 4.2 % (15.3-44.8); MPV 8.2 fL (7.6-11.3); RBC Red Blood Cell Count 4.06 M/uL (3.86-4.86)
[2021-07-17 03:28] LABS: Albumin 2.2 g/dL (3.4-5.0); Bilirubin Total 0.3 mg/dL (0.2-1.0); C-Reactive Protein 93.4 mg/L (<3.00); Potassium 3.8 mmol/L (3.5-5.1); Protein, Total 6.6 g/dL (6.4-8.2)
[2021-07-17] MEDS ORDERED: LEVOTHYROXINE SOD 0.05 MG TABLET ONE (04:07)
--- NOTE | 2021-07-17 06:19 | P.PN ---
Subjective Date of Service: 07/17/21 Primary Care Provider: Radha Sparrow Chief Complaint: COVID-19 pneumonia Subjective: Improving (Patient on 8 L) Physical Examination - Vital Signs Temperature: 98.7 F Blood Pressure: 128/62 Pulse: 58 Respirations: 27 Pulse Ox (%): 89 Assessment & Plan Discharge Plan: Home Plan to discharge in: 72 Hours Physician Review Additional Text: COVID: Positive Chest x-ray: COMPARISON: 1999 FINDINGS: [id number] bilateral pulmonary opacities. Moderate hiatal hernia The heart is normal size IMPRESSION: Mild to moderate bilateral pulmonary opacities probably pneumonia Liver ultrasound: COMPARISON: None. FINDINGS: A cholecystectomy. The biliary tree is normal caliber. Borderline hepatomegaly. Liver has a mildly increased echotexture. IMPRESSION: Mildly increased hepatic echotexture probably fatty infiltration Borderline hepatomegaly Physical exam: General: Alert, In no apparent distress, Oriented x3 HEENT: Neck supple Respiratory: Overall clear. Increase oxygen intake noted. Currently on 8 L Cardiovascular: Regular rate/rhythm, Normal S1 S2 Gastrointestinal: Normal bowel sounds, No tenderness Musculoskeletal: No tenderness Integumentary: No rashes Neurological: Normal speech, Normal strength at 5/5 x4 extr, Normal tone, Normal affect Impression: Acute hypoxic respiratory failure secondary to COVID-19 pneumonia with UTI Diabetes mellitus type 2 diet controlled with hyperglycemia Hypertension Hypothyroidism GERD with hiatal hernia Elevated liver function with fatty liver Plan: Acute hypoxic respiratory failure secondary to COVID-19 pneumonia with UTI: Slow improvement noted. Currently on 8 L per nasal cannula. Count stable. Patient remains on Rocephin for possible underlying UTI complicated with COVID-19. Continue with IV Solu-Medrol. Pulmonology recommends starting baricitinib. Will monitor liver function test. Continue DVT prophylaxis. Respiratory to continue to wean off oxygen to maintain sats above 93%. Continue to monitor CRP and ferritin. Physical therapy to ambulate. Continue supplementation. Continue to monitor closely. Continue to reassess. Await recommendations from pulmonology Diabetes mellitus type II diet controlled with hyperglycemia: Hemoglobin A1c 6.4. Continue with Accu-Cheks and sliding scale. Hypertension: Blood pressure stable off valsartan. Continue to hold medication Hypothyroidism: Continue home medication GERD with hiatal hernia: Continue Pepcid Elevated liver function with fatty liver: We will monitor this closely. Improvement noted DVT PPX: Lovenox Code status: Full Advance care planning: Home at discharge Time Spent Managing Pts Care (In Minutes): 55
[2021-07-17] MEDS ORDERED: BENZONATATE 100 MG CAP PO ONE ×2 (06:20→20:17)
[2021-07-17] MEDS: LEVOTHYROXINE SOD 0.05 MG TABLET PO SCH (06:30)
[2021-07-17] MEDS: INSULIN -REGULAR HUMAN 50 UNIT/0.5 ML ML SQ SCH ×4 (07:30→21:00)
--- NOTE | 2021-07-17 08:32 | RAD REPORT ---
EXAM DESCRIPTION: RAD - Chest Single View - 07/17/2021 4:38 am CLINICAL HISTORY: Follow-up Covid COMPARISON: Chest Single View dated 07/14/2021; CHEST PA AND LAT 2 VIEW dated 05/11/2015; ABDOMEN 1 EW KUB dated 04/14/2014; CHEST PA AND LAT 2 VIEW dated 04/14/2014 FINDINGS: Lines: None. Lungs: Worsening consolidative airspace disease in the left lung and left lung base. Patchy right oliverio g airspace disease. Pleural: Difficult to exclude a small moderate left pleural effusion. Small right effusion. Cardiac: The heart size is within normal limits. Bones: No acute fractures. Other: IMPRESSION: Bilateral airspace disease with worsening consolidation in the left lung. There may be a coexisting enlarging left pleural effusion as well.
[2021-07-17] MEDS ORDERED: VITAMIN D 1000 UNIT TAB ONE (08:54)
[2021-07-17] MEDS ORDERED: ASPIRIN EC 81 MG TAB PO ONE (08:54)
[2021-07-17] MEDS ORDERED: ASCORBIC ACID 500 MG TABLET ONE ×3 (08:54→20:16)
[2021-07-17] MEDS ORDERED: ENOXAPARIN 40 MG/0.4 ML SQ ONE (08:55)
[2021-07-17] MEDS ORDERED: CEFTRIAXONE 1000 MG/VIAL ONE (08:55)
[2021-07-17] MEDS ORDERED: FAMOTIDINE 20 MG/2 ML VIAL IV ONE (08:56)
[2021-07-17] MEDS ORDERED: CEFTRIAXONE/SWI 1gm 1 GM/10 ML SYR ONE (08:59)
[2021-07-17] MEDS: THIAMINE HCL 100 MG TABLET PO SCH (09:00)
[2021-07-17] MEDS: ENOXAPARIN 40 MG/0.4 ML SQ SCH (09:00)
[2021-07-17] MEDS: ASCORBIC ACID 500 MG TABLET PO SCH ×4 (09:00→20:49)
[2021-07-17] MEDS: ASPIRIN EC 81 MG TAB PO SCH (09:00)
[2021-07-17] MEDS: CEFTRIAXONE/SWI 1gm 1 GM/10 ML SYR IV SCH (09:00)
[2021-07-17] MEDS: FAMOTIDINE 20 MG TAB PO SCH ×2 (09:00→20:49)
[2021-07-17] MEDS: FENOFIBRATE 160 MG TAB PO SCH (09:00)
[2021-07-17] MEDS: ZINC SULFATE 220 MG CAP PO SCH (09:00)
[2021-07-17] MEDS: VITAMIN D 1000 UNIT TAB PO SCH (09:00)
[2021-07-17] MEDS ORDERED: INSULIN -REGULAR HUMAN 50 UNIT/0.5 ML ML ONE ×3 (11:00→21:48)
[2021-07-17] MEDS ORDERED: THIAMINE HCL 100 MG TABLET ONE (11:00)
--- NOTE | 2021-07-17 12:35 | P.CNS ---
Date of Consult: 07/17/21 Primary Care Provider: Radha Sparrow Chief Complaint: COVID-19 pneumonia History of Present Illness: Patient is 80 years of age patient is 80 years of age with metabolic syndrome admitted with coronavirus pneumonia Allergies ofloxacin [From Floxin] Allergy (Verified 05/03/17 08:19) blisters in mouth Home Medications: Levothyroxine Sodium [Unithroid] 50 mcg PO DAILY 06/02/16 Valsartan [Diovan*] 160 mg PO [id number] 06/02/16 - Past Medical/Surgical History Diabetic: No -: HTN -: Hypothyroidism -: Iron deficiency anemia -: Hiatal hernia -: Umbilical hernia -: Inguinal hernia -: Left renal cyst -: Cholecystectomy -: Hysterectomy -: Bladder repair -: Appendectomy -: Hernia repair Psychosocial/ Personal History: She is , has 2 children, she is retired teacher - Family History Father Medical History: Hypertension - Social History Smoking Status: Unknown if ever smoked Alcohol use: No CD- Drugs: No Caffeine use: Yes Place of Residence: Home Review of Systems General: Weakness Respiratory: Shortness of Breath Physical Examination Temp Pulse Resp BP Pulse Ox 97.6 F 52 15 116/44 L 91 07/17/21 07:41 07/17/21 07:41 07/17/21 07:41 07/17/21 07:41 07/17/21 07:41 General: Alert, Oriented x3, Cooperative - Problems (1) 2019 novel coronavirus-infected pneumonia (NCIP) Current Visit: Yes Status: Acute Plan: Patient is 80 years of age admit patient is 80 years of age admitted with coronavirus pneumonia chest x-ray shows severe coronavirus pneumonia patient will qualify for Barcitinib and is currently on high flow oxygen/continue with full anticoagulation changed to full anticoagulation
[2021-07-17] MEDS: BARICITINIB 2 MG TABLET PO SCH (13:00)
[2021-07-17] MEDS: RIVAROXABAN 20 MG TABLET PO SCH (17:00)
[2021-07-17] MEDS ORDERED: RIVAROXABAN 20 MG TABLET PO ONE (17:18)
[2021-07-17] MEDS ORDERED: FAMOTIDINE 20 MG TAB ONE (20:17)
[2021-07-17] MEDS ORDERED: MELATONIN 5 MG TABLET PO ONE (20:17)
[2021-07-17] MEDS: MELATONIN 5 MG TABLET PO PRN (20:49)
[2021-07-17] MEDS: BENZONATATE 100 MG CAP PO PRN (20:49)
[2021-07-18] MEDS: METHYLPREDNISOLONE 125 MG INJ IV SCH ×3 (01:00→17:00)
[2021-07-18] MEDS ORDERED: METHYLPREDNISOLONE 125 MG INJ ONE ×2 (02:28→09:51)
[2021-07-18 04:24] LABS: Absolute Lymphocytes (CBC) 0.9 K/uL (0.7-4.9); Basophils % 0.7 % (0-1.3); Hematocrit 35.6 % (36.0-45.0); RBC Red Blood Cell Count 4.09 M/uL (3.86-4.86)
[2021-07-18 05:09] LABS: Bilirubin Total 0.3 mg/dL (0.2-1.0); C-Reactive Protein 42.8 mg/L (<3.00); Ferritin 210.2 ng/mL (8-388); Potassium 4.2 mmol/L (3.5-5.1); Protein, Total 5.9 g/dL (6.4-8.2)
[2021-07-18] MEDS: LEVOTHYROXINE SOD 0.05 MG TABLET PO SCH (06:30)
--- NOTE | 2021-07-18 06:33 | P.PN ---
Subjective Date of Service: 07/18/21 Primary Care Provider: Radha Sparrow Chief Complaint: COVID-19 pneumonia Subjective: Other (Overall stable. Currently on 8 L) Physical Examination - Vital Signs Temperature: 98.9 F Blood Pressure: 117/50 Pulse: 60 Respirations: 20 Pulse Ox (%): 89 - Studies Microbiology Data (last 24 hrs): 07/14/21 21:40 Throat Culture & Sensitivity - Final NORMAL UPPER RESPIRATORY JOEY GROWN. 07/15/21 00:15 Clean Catch Urine [place] Count - Final >100,000 CFU/ML. 07/15/21 00:15 Clean Catch Urine - Final MIXED JOEY. Assessment & Plan Discharge Plan: Home Plan to discharge in: Greater than 2 days Physician Review Additional Text: COVID: Positive Chest x-ray: COMPARISON: 1999 FINDINGS: [id number] bilateral pulmonary opacities. Moderate hiatal hernia The heart is normal size IMPRESSION: Mild to moderate bilateral pulmonary opacities probably pneumonia Liver ultrasound: COMPARISON: None. FINDINGS: A cholecystectomy. The biliary tree is normal caliber. Borderline hepatomegaly. Liver has a mildly increased echotexture. IMPRESSION: Mildly increased hepatic echotexture probably fatty infiltration Borderline hepatomegaly Physical exam: General: Alert, In no apparent distress, Oriented x3 HEENT: Neck supple Respiratory: Overall clear. Increase oxygen intake noted. Currently on 8 L Cardiovascular: Regular rate/rhythm, Normal S1 S2 Gastrointestinal: Normal bowel sounds, No tenderness Musculoskeletal: No tenderness Integumentary: No rashes Neurological: Normal speech, Normal strength at 5/5 x4 extr, Normal tone, Normal affect Impression: Acute hypoxic respiratory failure secondary to COVID-19 pneumonia with UTI Diabetes mellitus type 2 diet controlled with hyperglycemia Hypertension Hypothyroidism GERD with hiatal hernia Elevated liver function with fatty liver Plan: Acute hypoxic respiratory failure secondary to COVID-19 pneumonia with UTI: No s ignificant change. Currently on 8 L per nasal cannula. Slow improvement noted. Patient remains on Rocephin for possible underlying UTI complicated with COVID- 19. Continue with IV Solu-Medrol. Baricitinib added. Will monitor liver function test. Continue DVT prophylaxis. Respiratory to continue to wean off oxygen to maintain sats above 93%. Continue to monitor CRP and ferritin. Physical therapy to ambulate. Continue supplementation. Continue to monitor closely. Continue to reassess. Await recommendations from pulmonology Diabetes mellitus type II diet controlled with hyperglycemia: Hemoglobin A1c 6.4. Continue with Accu-Cheks and sliding scale. Hypertension: Blood pressure stable off valsartan. Continue to hold medication Hypothyroidism: Continue home medication GERD with hiatal hernia: Continue Pepcid Elevated liver function with fatty liver: We will monitor this closely. Improvement noted DVT PPX: Lovenox Code status: Full Advance care planning: Home at discharge Time Spent Managing Pts Care (In Minutes): 55
[2021-07-18] MEDS: INSULIN -REGULAR HUMAN 50 UNIT/0.5 ML ML SQ SCH ×4 (07:30→20:43)
[2021-07-18] MEDS: ZINC SULFATE 220 MG CAP PO SCH (09:00)
[2021-07-18] MEDS: FAMOTIDINE 20 MG TAB PO SCH ×2 (09:00→20:37)
[2021-07-18] MEDS: BARICITINIB 2 MG TABLET PO SCH (09:00)
[2021-07-18] MEDS: FENOFIBRATE 160 MG TAB PO SCH (09:00)
[2021-07-18] MEDS: VITAMIN D 1000 UNIT TAB PO SCH (09:00)
[2021-07-18] MEDS: ASCORBIC ACID 500 MG TABLET PO SCH ×4 (09:00→20:37)
[2021-07-18] MEDS: CEFTRIAXONE/SWI 1gm 1 GM/10 ML SYR IV SCH (09:00)
[2021-07-18] MEDS: ASPIRIN EC 81 MG TAB PO SCH ×2 (09:00)
[2021-07-18] MEDS: THIAMINE HCL 100 MG TABLET PO SCH (09:00)
[2021-07-18] MEDS ORDERED: ASPIRIN EC 81 MG TAB PO ONE (09:42)
[2021-07-18] MEDS ORDERED: FAMOTIDINE 20 MG TAB ONE (09:43)
[2021-07-18] MEDS ORDERED: CEFTRIAXONE/SWI 1gm 1 GM/10 ML SYR ONE (09:48)
[2021-07-18] MEDS ORDERED: THIAMINE HCL 100 MG TABLET ONE (09:51)
[2021-07-18] MEDS ORDERED: ASCORBIC ACID 500 MG TABLET ONE ×2 (09:51→12:26)
[2021-07-18] MEDS ORDERED: INSULIN -REGULAR HUMAN 50 UNIT/0.5 ML ML ONE ×2 (09:52→12:27)
[2021-07-18] MEDS ORDERED: VITAMIN D 1000 UNIT TAB ONE (09:52)
[2021-07-18] MEDS ORDERED: ZINC SULFATE 220 MG CAP ONE (09:52)
[2021-07-18] MEDS: RIVAROXABAN 20 MG TABLET PO SCH (17:00)
[2021-07-19] MEDS: METHYLPREDNISOLONE 125 MG INJ IV SCH ×2 (00:15→08:05)
[2021-07-19] MEDS: LEVOTHYROXINE SOD 0.05 MG TABLET PO SCH (05:38)
[2021-07-19 06:21] LABS: Absolute Lymphocytes (CBC) 0.9 K/uL (0.7-4.9); Basophils % 0.2 % (0-1.3); Hematocrit 33.9 % (36.0-45.0); Lymphocytes % 5.9 % (15.3-44.8); MPV 8.1 fL (7.6-11.3); RBC Red Blood Cell Count 3.89 M/uL (3.86-4.86)
--- NOTE | 2021-07-19 06:23 | P.PN ---
Subjective Date of Service: 07/19/21 Primary Care Provider: Radha Sparrow Chief Complaint: COVID-19 pneumonia Subjective: Improving (Clinically improved. Overall still requiring 15 L) Physical Examination - Vital Signs Temperature: 97.5 F Blood Pressure: 111/58 Pulse: 54 Respirations: 20 Pulse Ox (%): 93 Assessment & Plan Discharge Plan: Home Plan to discharge in: 72 Hours Physician Review Additional Text: COVID: Positive Chest x-ray: COMPARISON: 1999 FINDINGS: [id number] bilateral pulmonary opacities. Moderate hiatal hernia The heart is normal size IMPRESSION: Mild to moderate bilateral pulmonary opacities probably pneumonia Liver ultrasound: COMPARISON: None. FINDINGS: A cholecystectomy. The biliary tree is normal caliber. Borderline hepatomegaly. Liver has a mildly increased echotexture. IMPRESSION: Mildly increased hepatic echotexture probably fatty infiltration Borderline hepatomegaly Physical exam: General: Alert, In no apparent distress, Oriented x3 HEENT: Neck supple Respiratory: Currently on 15 L Cardiovascular: Regular rate/rhythm, Normal S1 S2 Gastrointestinal: Normal bowel sounds, No tenderness Musculoskeletal: No tenderness Integumentary: No rashes Neurological: Normal speech, Normal strength at 5/5 x4 extr, Normal tone, Normal affect Impression: Acute hypoxic respiratory failure secondary to COVID-19 pneumonia with UTI Diabetes mellitus type 2 diet controlled with hyperglycemia Hypertension Hypothyroidism GERD with hiatal hernia Elevated liver function with fatty liver Plan: Acute hypoxic respiratory failure secondary to COVID-19 pneumonia with UTI: Clinically patient appears stable. CRP and ferritin continue to improve. Now on 15 L. Slow improvement noted. Patient remains on Rocephin for possible underlying UTI complicated with COVID-19. Continue with IV Solu-Medrol. Continue baricitinib.. Will monitor liver function test. Continue DVT prophylaxis. Respiratory to continue to wean off oxygen to maintain sats above 90 %. Continue to monitor CRP and ferritin. Physical therapy to ambulate. Continue supplementation. Continue to monitor closely. Continue to reassess. Await recommendations from pulmonology Diabetes mellitus type II diet controlled with hyperglycemia: Hemoglobin A1c 6.4. Continue with Accu-Cheks and sliding scale. Hypertension: Blood pressure stable off valsartan. Continue to hold medication Hypothyroidism: Continue home medication GERD with hiatal hernia: Continue Pepcid Elevated liver function with fatty liver: We will monitor this closely. Improvement noted DVT PPX: Xarelto Code status: Full Advance care planning: Home at discharge Time Spent Managing Pts Care (In Minutes): 55
[2021-07-19 06:29] LABS: Albumin 2.1 g/dL (3.4-5.0); Bilirubin Total 0.4 mg/dL (0.2-1.0); C-Reactive Protein 23.4 mg/L (<3.00); Ferritin 161.6 ng/mL (8-388); Potassium 4.4 mmol/L (3.5-5.1); Protein, Total 5.9 g/dL (6.4-8.2)
--- NOTE | 2021-07-19 07:32 | RAD REPORT ---
EXAM DESCRIPTION: Johnnie Single View07/19/2021 7:16 am CLINICAL HISTORY: sob COMPARISON: July 17, 2021 FINDINGS: Minimal improvement in the bilateral pulmonary opacities. Questionable mild pneumomediastinum. Heart is mildly enlarged. Small pleural effusions suspected IMPRESSION: Minimal improvement in the bilateral pulmonary opacities probably pneumonia. Questionable mild pneumomediastinum
[2021-07-19] MEDS: THIAMINE HCL 100 MG TABLET PO SCH (08:04)
[2021-07-19] MEDS: ZINC SULFATE 220 MG CAP PO SCH (08:04)
[2021-07-19] MEDS: FAMOTIDINE 20 MG TAB PO SCH ×2 (08:04→20:06)
[2021-07-19] MEDS: VITAMIN D 1000 UNIT TAB PO SCH (08:04)
[2021-07-19] MEDS: ASCORBIC ACID 500 MG TABLET PO SCH ×4 (08:05→20:06)
[2021-07-19] MEDS: CEFTRIAXONE/SWI 1gm 1 GM/10 ML SYR IV SCH (08:06)
[2021-07-19] MEDS: BARICITINIB 2 MG TABLET PO SCH (08:07)
[2021-07-19] MEDS: FENOFIBRATE 160 MG TAB PO SCH (08:07)
[2021-07-19] MEDS: ASPIRIN EC 81 MG TAB PO SCH (08:08)
[2021-07-19] MEDS: INSULIN -REGULAR HUMAN 50 UNIT/0.5 ML ML SQ SCH ×4 (09:00→20:05)
[2021-07-19 10:40] LABS: Blood Morphology Comment NOT SEEN (NOT SEEN); Platelet Estimate ADEQ; White Blood Cell Scan OK (OK)
--- NOTE | 2021-07-19 12:46 | P.PN ---
Subjective Date of Service: 07/19/21 Primary Care Provider: Radha Sparrow Chief Complaint: COVID-19 pneumonia Respiratory failure patient is feeling better oxygen requirements have been declining Review of Systems Unremarkable Physical Examination - Vital Signs Temperature: 98.3 F Blood Pressure: 119/66 Pulse: 55 Respirations: 24 Pulse Ox (%): 99 - Physical Exam General: Alert, Oriented x3, Cooperative Assessment & Plan - Problems (Diagnosis) (1) 2019 novel coronavirus-infected pneumonia (NCIP) Current Visit: Yes Status: Acute Plan: Patient is doing much better she is alert oriented responsive cooperative plan to wean down her oxygen hopefully we can discharge her in the next few days he has a minimal improvement in her bilateral disease Physician Review Additional Text: COVID: Positive Chest x-ray: COMPARISON: 1999 FINDINGS: [id number] bilateral pulmonary opacities. Moderate hiatal hernia The heart is normal size IMPRESSION: Mild to moderate bilateral pulmonary opacities probably pneumonia Liver ultrasound: COMPARISON: None. FINDINGS: A cholecystectomy. The biliary tree is normal caliber. Borderline hepatomegaly. Liver has a mildly increased echotexture. IMPRESSION: Mildly increased hepatic echotexture probably fatty infiltration Borderline hepatomegaly Physical exam: General: Alert, In no apparent distress, Oriented x3 HEENT: Neck supple Respiratory: Overall clear. Increase oxygen intake noted. Currently on 8 L Cardiovascular: Regular rate/rhythm, Normal S1 S2 Gastrointestinal: Normal bowel sounds, No tenderness Musculoskeletal: No tenderness Integumentary: No rashes Neurological: Normal speech, Normal strength at 5/5 x4 extr, Normal tone, Normal affect Impression: Acute hypoxic respiratory failure secondary to COVID-19 pneumonia with UTI Diabetes mellitus type 2 diet controlled with hyperglycemia Hypertension Hypothyroidism GERD with hiatal hernia Elevated liver function with fatty liver Plan: Acute hypoxic respiratory failure secondary to COVID-19 pneumonia with UTI: No significant change. Currently on 8 L per nasal cannula. Slow improvement noted. Patient remains on Rocephin for possible underlying UTI complicated with COVID- 19. Continue with IV Solu-Medrol. Baricitinib added. Will monitor liver function test. Continue DVT prophylaxis. Respiratory to continue to wean off oxygen to maintain sats above 93%. Continue to monitor CRP and ferritin. Physical therapy to ambulate. Continue supplementation. Continue to monitor closely. Continue to reassess. Await recommendations from pulmonology Diabetes mellitus type II diet controlled with hyperglycemia: Hemoglobin A1c 6.4. Continue with Accu-Cheks and sliding scale. Hypertension: Blood pressure stable off valsartan. Continue to hold medication Hypothyroidism: Continue home medication GERD with hiatal hernia: Continue Pepcid Elevated liver function with fatty liver: We will monitor this closely. Improvement noted DVT PPX: Lovenox Code status: Full Advance care planning: Home at discharge
[2021-07-19] MEDS: RIVAROXABAN 20 MG TABLET PO SCH (17:26)
[2021-07-19] MEDS: METHYLPREDNISOLONE 40 MG INJ IV SCH (20:05)
[2021-07-19] MEDS ORDERED: DOCUSATE NA 100 MG CAP PO ONE (21:01)
--- NOTE | 2021-07-20 06:11 | P.PN ---
Subjective Date of Service: 07/20/21 Primary Care Provider: Radha Sparrow Chief Complaint: COVID-19 pneumonia Subjective: Doing well (Currently on 15 L) Physical Examination - Vital Signs Temperature: 97.7 F Blood Pressure: 118/58 Pulse: 50 Respirations: 20 Pulse Ox (%): 95 - Studies Microbiology Data (last 24 hrs): 07/14/21 23:10 Blood - Blood Aerobic Blood Culture - Final No growth in 5 days. 07/14/21 23:10 Blood - Blood Anaerobic Blood Culture - Final 07/14/21 21:48 Blood - Blood Aerobic Blood Culture - Final No growth in 5 days. 07/14/21 21:48 Blood - Blood Anaerobic Blood Culture - Final No growth in 5 days. Assessment & Plan Discharge Plan: Home Plan to discharge in: Greater than 2 days Physician Review Additional Text: COVID: Positive Chest x-ray: COMPARISON: 1999 FINDINGS: [id number] bilateral pulmonary opacities. Moderate hiatal hernia The heart is normal size IMPRESSION: Mild to moderate bilateral pulmonary opacities probably pneumonia Liver ultrasound: COMPARISON: None. FINDINGS: A cholecystectomy. The biliary tree is normal caliber. Borderline hepatomegaly. Liver has a mildly increased echotexture. IMPRESSION: Mildly increased hepatic echotexture probably fatty infiltration Borderline hepatomegaly Physical exam: General: Alert, In no apparent distress, Oriented x3 HEENT: Neck supple Respiratory: Currently on 15 L Cardiovascular: Regular rate/rhythm, Normal S1 S2 Gastrointestinal: Normal bowel sounds, No tenderness Musculoskeletal: No tenderness Integumentary: No rashes Neurological: Normal speech, Normal strength at 5/5 x4 extr, Normal tone, Normal affect Impression: Acute hypoxic respiratory failure secondary to COVID-19 pneumonia with UTI Diabetes mellitus type 2 diet controlled with hyperglycemia Hypertension Hypothyroidism GERD with hiatal hernia Elevated liver function with fatty liver Plan: Acute hypoxic respiratory failure secondary to COVID-19 pneumonia with UTI: Clinically patient appears stable. CRP and ferritin continue to improve. Now on 15 L. Slow improvement noted. Patient remains on Rocephin for possible underlying UTI complicated with COVID-19. Continue with IV Solu-Medrol. Continue baricitinib.. Will monitor liver function test. Continue DVT prophylaxis. Respiratory to continue to wean off oxygen to maintain sats above 90 %. Continue to monitor CRP and ferritin. Physical therapy to ambulate. Continue supplementation. Continue to monitor closely. Continue to reassess. Await recommendations from pulmonology. I will turn the service over to the hospitalist team tomorrow. I will go plan of care with him. Diabetes mellitus type II diet controlled with hyperglycemia: Hemoglobin A1c 6.4. Continue with Accu-Cheks and sliding scale. Hypertension: Blood pressure stable off valsartan. Continue to hold medication Hypothyroidism: Continue home medication GERD with hiatal hernia: Continue Pepcid Elevated liver function with fatty liver: We will monitor this closely. Imp rovement noted DVT PPX: Xarelto Code status: Full Advance care planning: Home at discharge Time Spent Managing Pts Care (In Minutes): 55
[2021-07-20] MEDS: LEVOTHYROXINE SOD 0.05 MG TABLET PO SCH (07:02)
[2021-07-20] MEDS: INSULIN -REGULAR HUMAN 50 UNIT/0.5 ML ML SQ SCH ×4 (07:30→20:20)
--- NOTE | 2021-07-20 07:47 | RAD REPORT ---
EXAM DESCRIPTION: RAD - Chest Single View - 07/20/2021 6:40 am CLINICAL HISTORY: worsening dyspnea, hypoxia COMPARISON: Chest Single View dated 07/19/2021; Chest Single View dated 07/17/2021; Chest Single View da sagrario 07/14/2021; CHEST PA AND LAT 2 VIEW dated 05/11/2015 FINDINGS: Lines: None. Lungs: Moderate patchy bilateral airspace disease without significant change compared with 07/19/2021 Pleural: Question small effusions bilaterally. No pneumothorax Cardiac: Cardiomegaly Bones: No acute fractures. Other: IMPRESSION: Similar patchy multifocal airspace disease concerning for multifocal pneumonia.
[2021-07-20] MEDS: CEFTRIAXONE/SWI 1gm 1 GM/10 ML SYR IV SCH (08:26)
[2021-07-20] MEDS: ZINC SULFATE 220 MG CAP PO SCH (08:26)
[2021-07-20] MEDS: FAMOTIDINE 20 MG TAB PO SCH ×2 (08:26→19:40)
[2021-07-20] MEDS: FENOFIBRATE 160 MG TAB PO SCH (08:26)
[2021-07-20] MEDS: VITAMIN D 1000 UNIT TAB PO SCH (08:26)
[2021-07-20] MEDS: ASCORBIC ACID 500 MG TABLET PO SCH ×4 (08:26→19:40)
[2021-07-20] MEDS: THIAMINE HCL 100 MG TABLET PO SCH (08:26)
[2021-07-20] MEDS: METHYLPREDNISOLONE 40 MG INJ IV SCH ×2 (08:26→19:40)
[2021-07-20] MEDS: BENZONATATE 100 MG CAP PO PRN ×2 (08:26→19:40)
[2021-07-20] MEDS: BARICITINIB 2 MG TABLET PO SCH (08:27)
[2021-07-20] MEDS: ASPIRIN EC 81 MG TAB PO SCH (08:27)
[2021-07-20] MEDS: RIVAROXABAN 20 MG TABLET PO SCH (16:37)
[2021-07-20] MEDS: DOCUSATE NA 100 MG CAP PO PRN (19:40)
[2021-07-20] MEDS: MELATONIN 5 MG TABLET PO PRN (19:40)
[2021-07-21] MEDS: LEVOTHYROXINE SOD 0.05 MG TABLET PO SCH (05:17)
[2021-07-21 05:53] LABS: Absolute Lymphocytes (CBC) 0.9 K/uL (0.7-4.9); Basophils % 0.2 % (0-1.3); Hematocrit 36.1 % (36.0-45.0); Lymphocytes % 4.5 % (15.3-44.8); MPV 8.2 fL (7.6-11.3); RBC Red Blood Cell Count 4.09 M/uL (3.86-4.86)
[2021-07-21 06:05] LABS: ALT/SGPT 43 U/L (12-78); AST/SGOT 13 U/L (15-37); Albumin 2.2 g/dL (3.4-5.0); Alkaline Phosphatase 63 U/L (45-117); BUN Blood Urea Nitrogen 25 mg/dL (7-18); Bicarbonate 33 mmol/L (21-32); Bilirubin Total 0.4 mg/dL (0.2-1.0); C-Reactive Protein 9.07 mg/L (<3.00); Ferritin 207.2 ng/mL (8-388); Glucose Level 118 mg/dL (74-106); Magnesium 2.7 mg/dL (1.8-2.4); Potassium 4.9 mmol/L (3.5-5.1); Protein, Total 5.7 g/dL (6.4-8.2); Sodium Level 138 mmol/L (136-145)
[2021-07-21] MEDS: INSULIN -REGULAR HUMAN 50 UNIT/0.5 ML ML SQ SCH ×4 (07:30→19:55)
--- NOTE | 2021-07-21 08:56 | RAD REPORT ---
EXAM DESCRIPTION: Johnnie Single View07/21/2021 6:34 am CLINICAL HISTORY: Shortness breath COMPARISON: July 20 FINDINGS: Mild improvement in bilateral pulmonary opacities. The heart is mildly enlarged IMPRESSION: Mild improvement in the bilateral pneumonia
[2021-07-21] MEDS: DOCUSATE NA 100 MG CAP PO PRN (09:07)
[2021-07-21] MEDS: CEFTRIAXONE/SWI 1gm 1 GM/10 ML SYR IV SCH (09:07)
[2021-07-21] MEDS: VITAMIN D 1000 UNIT TAB PO SCH (09:07)
[2021-07-21] MEDS: FAMOTIDINE 20 MG TAB PO SCH ×2 (09:07→19:44)
[2021-07-21] MEDS: THIAMINE HCL 100 MG TABLET PO SCH (09:07)
[2021-07-21] MEDS: METHYLPREDNISOLONE 40 MG INJ IV SCH ×2 (09:08→19:31)
[2021-07-21] MEDS: ZINC SULFATE 220 MG CAP PO SCH (09:08)
[2021-07-21] MEDS: BENZONATATE 100 MG CAP PO PRN ×2 (09:09→19:39)
[2021-07-21] MEDS: ASPIRIN EC 81 MG TAB PO SCH (09:09)
[2021-07-21] MEDS: ASCORBIC ACID 500 MG TABLET PO SCH ×4 (09:09→19:31)
[2021-07-21] MEDS: FENOFIBRATE 160 MG TAB PO SCH (09:09)
[2021-07-21] MEDS: BARICITINIB 2 MG TABLET PO SCH (09:09)
[2021-07-21] MEDS: RIVAROXABAN 20 MG TABLET PO SCH (16:15)
[2021-07-22 04:32] LABS: Absolute Lymphocytes (CBC) 1.3 K/uL (0.7-4.9); Basophils % 0.1 % (0-1.3); Hematocrit 35.9 % (36.0-45.0); MPV 8.4 fL (7.6-11.3); RBC Red Blood Cell Count 4.05 M/uL (3.86-4.86)
[2021-07-22 05:15] LABS: Albumin 2.3 g/dL (3.4-5.0); Bilirubin Total 0.4 mg/dL (0.2-1.0); C-Reactive Protein 8.6 mg/L (<3.00); Magnesium 2.6 mg/dL (1.8-2.4); Potassium 4.5 mmol/L (3.5-5.1); Protein, Total 5.3 g/dL (6.4-8.2)
[2021-07-22] MEDS: LEVOTHYROXINE SOD 0.05 MG TABLET PO SCH (05:36)
[2021-07-22] MEDS: INSULIN -REGULAR HUMAN 50 UNIT/0.5 ML ML SQ SCH (07:30)
[2021-07-22] MEDS: THIAMINE HCL 100 MG TABLET PO SCH (07:59)
[2021-07-22] MEDS: ASPIRIN EC 81 MG TAB PO SCH ×2 (07:59→08:30)
[2021-07-22] MEDS: ZINC SULFATE 220 MG CAP PO SCH (07:59)
[2021-07-22] MEDS: VITAMIN D 1000 UNIT TAB PO SCH (07:59)
[2021-07-22] MEDS: ASCORBIC ACID 500 MG TABLET PO SCH (07:59)
[2021-07-22] MEDS: FAMOTIDINE 20 MG TAB PO SCH (07:59)
[2021-07-22] MEDS: FENOFIBRATE 160 MG TAB PO SCH (07:59)
[2021-07-22] MEDS: METHYLPREDNISOLONE 40 MG INJ IV SCH (08:00)
[2021-07-22] MEDS ORDERED: BARICITINIB 2 MG TABLET PO SCH (09:00)
[2021-07-22 09:21] VITALS: BP 125/89; TEMP 97.1
[2021-07-22 09:45] VITALS: O2SAT 93
--- NOTE | 2021-07-22 09:51 | P.PN ---
Subjective Date of Service: 07/21/21 Patient clinically doing well with no new complaints. Patient clinical symptoms are improving. Patient is wanting to go home Review of Systems 10-point ROS is otherwise unremarkable Physical Examination - Vital Signs Temperature: 97.1 F Blood Pressure: 125/89 Pulse: 57 Respirations: 18 Pulse Ox (%): 93 - Physical Exam General: Alert, In no apparent distress, Oriented x3 Respiratory: Clear to auscultation bilaterally, Normal air movement Cardiovascular: Regular rate/rhythm, Normal S1 S2 Gastrointestinal: Normal bowel sounds, Soft and benign, Non-distended, No tenderness Musculoskeletal: No clubbing, No swelling, No tenderness Neurological: Sensation intact, Cranial nerves 3-12 intact - Studies Medications List Reviewed: Yes Assessment & Plan - Problems (Diagnosis) (1) 2019 novel coronavirus-infected pneumonia (NCIP) Current Visit: Yes Status: Acute (2) Obesity Onset Date: 10/01/16 Current Visit: No Status: Acute Qualifiers: Obesity type: unspecified obesity type Qualified Code(s): E66.9 - Obesity, unspecified (3) Hypertension Onset Date: 10/01/16 Current Visit: No Status: Chronic Qualifiers: Hypertension type: essential hypertension Qualified Code(s): I10 - Essential (primary) hypertension (4) Hypothyroidism Onset Date: 10/01/16 Current Visit: No Status: Chronic Qualifiers: Hypothyroidism type: unspecified Qualified Code(s): E03.9 - Hypothyroidism, unspecified (5) Umbilical hernia Onset Date: 10/01/16 Current Visit: No Status: Chronic Qualifiers: Obstruction and gangrene presence: without obstruction or gangrene Qualified Code(s): K42.9 - Umbilical hernia without obstruction or gangrene - Plan Plan: 1. Arrange for discharge planning 2. Dc on steroids 3. Inhaler therapy 4. Cough medication advised. Resume home medications anticipate discharge home today - Advance Directives Does patient have a Living Will: No Does patient have a Durable POA for Healthcare: No
--- NOTE | 2021-07-28 02:32 | P.DS ---
Discharge Date: 07/22/21 Primary Care Provider: Radha Sparrow Disposition: ROUTINE DISCHARGE Discharge Condition: GOOD Reason for Admission: COVID-19 pneumonia - Problems (1) 2019 novel coronavirus-infected pneumonia (NCIP) Status: Acute (2) Obesity Onset Date: 10/01/16 Status: Acute Qualifiers: Obesity type: unspecified obesity type Qualified Code(s): E66.9 - Obesity, unspecified (3) Hypertension Onset Date: 10/01/16 Status: Chronic Qualifiers: Hypertension type: essential hypertension Qualified Code(s): I10 - Essential (primary) hypertension (4) Hypothyroidism Onset Date: 10/01/16 Status: Chronic Qualifiers: Hypothyroidism type: unspecified Qualified Code(s): E03.9 - Hypothyroidism, unspecified (5) Umbilical hernia Onset Date: 10/01/16 Status: Chronic Qualifiers: Obstruction and gangrene presence: without obstruction or gangrene Qualified Code(s): K42.9 - Umbilical hernia without obstruction or gangrene Brief History of Present Illness: 80-year-old female with history of hypertension, hypothyroidism presents emergency department for shortness of breath. Patient reports testing positive for Covid on 07/05/2021 with progressive shortness of breath over the course of the last few days. Patient was evaluated in the emergency department labs were significant for white blood cell count 22.8 sodium 131 BUN 20 GFR 46 glucose 210 lactic acid 2.1 AST 121 ALT 122 C-reactive protein 153 procalcitonin 0.43 patient with history of frequent urinary tract infections, trace leuks on urinalysis, urine microscopic pending. Patient swabbed Covid positive, chest x- ray demonstrates mild to moderate bilateral pulmonary opacities likely representing pneumonia patient not vaccinated. Will admit for further evaluation and management. Hospital Course: Patient is clinically doing well with no new complaints. Patient is feeling better. Will discharge with cough medication. Continue with tapering dose of steroid. Supportive care with inhaler therapy as well. At this time, patient is stable for discharge home. Vital Signs/Physical Exam: Temp Pulse Resp BP Pulse Ox 97.1 F 57 18 125/89 93 07/28/21 02:31 07/28/21 02:31 07/28/21 02:31 07/28/21 02:31 07/28/21 02:31 General: Alert, In no apparent distress, Oriented x3 Laboratory Data at Discharge: WBC 22.30 K/uL (4.3-10.9) H* 07/22/21 02:52 Hgb 11.8 g/dL (12.0-15.0) L 07/22/21 02:52 Hct 35.9 % (36.0-45.0) L 07/22/21 02:52 Plt Count 395 K/uL (152-406) 07/22/21 02:52 PT 13.8 SECONDS (9.5-12.5) H 07/14/21 21:48 INR 1.20 07/14/21 21:48 APTT 27.5 SECONDS (24.3-36.9) 07/14/21 21:48 Sodium 139 mmol/L (136-145) 07/22/21 02:52 Potassium 4.5 mmol/L (3.5-5.1) 07/22/21 02:52 BUN 29 mg/dL (7-18) H 07/22/21 02:52 Creatinine 0.68 mg/dL (0.55-1.3) 07/22/21 02:52 Glucose 98 mg/dL (74-106) 07/22/21 02:52 Magnesium 2.6 mg/dL (1.8-2.4) H 07/22/21 02:52 Total Bilirubin 0.4 mg/dL (0.2-1.0) 07/22/21 02:52 AST 11 U/L (15-37) L 07/22/21 02:52 ALT 29 U/L (12-78) 07/22/21 02:52 Alkaline Phosphatase 65 U/L (45-117) 07/22/21 02:52 Triglycerides 112 mg/dL (<150) 07/15/21 01:17 Cholesterol 110 mg/dL (<200) 07/15/21 01:17 HDL Cholesterol 22 mg/dL (40-60) L 07/15/21 01:17 Cholesterol/HDL Ratio 5.00 07/15/21 01:17 Lipase 60 U/L (73-393) L 07/14/21 21:48 Home Medications: Levothyroxine Sodium [Unithroid] 50 mcg PO DAILY 06/02/16 Valsartan [Diovan*] 160 mg PO [id number] 06/02/16 Ascorbic Acid [Vitamin C*] 500 mg PO QID #100 tablet 07/21/21 Benzonatate [Tessalon Perle*] 100 mg PO TID PRN #60 cap 07/21/21 Cholecalciferol (Vitamin D3) [Vitamin D 1000 Iu Tab*] 4,000 unit PO DAILY #30 tab 07/21/21 Docusate [Colace Cap*] 100 mg PO DAILY PRN #30 cap 07/21/21 Famotidine [Pepcid*] 20 mg PO BID #60 tab 07/21/21 Fenofibrate [Tricor*] 160 mg PO DAILY #30 tab 07/21/21 Rivaroxaban [Xarelto] 20 mg PO DAILY #20 tablet 07/21/21 Azithromycin Tab [Zithromax*] 250 mg PO DAILY #5 tab 07/22/21 Cefdinir [Omnicef] 300 mg PO BID #14 capsule 07/22/21 New Medications: Docusate [Colace Cap*] 100 mg PO DAILY PRN #30 cap PRN Reason: Constipation Cefdinir [Omnicef] 300 mg PO BID #14 capsule Famotidine [Pepcid*] 20 mg PO BID #60 tab Benzonatate [Tessalon Perle*] 100 mg PO TID PRN #60 cap PRN Reason: Cough Fenofibrate [Tricor*] 160 mg PO DAILY #30 tab Ascorbic Acid [Vitamin C*] 500 mg PO QID #100 tablet Cholecalciferol (Vitamin D3) [Vitamin D 1000 Iu Tab*] 4,000 unit PO DAILY #30 tab Rivaroxaban [Xarelto] 20 mg PO DAILY #20 tablet Azithromycin Tab [Zithromax*] 250 mg PO DAILY #5 tab Physician Discharge Instructions: OK TO DC IV AND DC HOME FOLLOW-UP WITH PCP IN 1-2 WEEKS FOLLOW-UP WITH PULMONARY IN 1-2 WEEKS RETURN TO THE ER IF SYMPTOMS WORSENS CALL ME AT [phone] IF ANY QUESTIONS REGARDING HOSPITAL STAY PROBLEM: Covid GOAL: decrease in Covid respiratoy complications INSTRUCTIONS:Use home O2 as instructed. Follow up with primary and pulmonary doctors. Diet: Regular Activity: Fall precautions DME DME: Home O2 Date Ordered: Name of Company: [facility] [phone] [employer] Services Needed: Name of Company: Date or Referral: IMMUNIZATION Influenza Vaccine Indicated: Influenza Vaccine Given: Date Given: Pneumonia Vaccine Indicated: No Pneumonia Vaccine Given: Date Given: Diet: Regular Activity: Fall precautions Followup: Aris Sood MD [ACTIVE - CAN ADMIT] - 1-2 Weeks (biostatistics director- call to schedule an appointment ) Govind Rodriges MD [ACTIVE - CAN ADMIT] - 1-2 Weeks (PCP- call to schedule an appointment ) Time spent managing pt's care (in minutes): 35
== END 2021-07-22 10:59 | disposition home or self-care (01) | DRG 177 ==
LOC: ER 19:31 → ERHOLD 07-15 00:49 → 4TH 07-18 14:51
PROVIDERS: ADMIT Family Medicine; ATTEND Family Medicine
DX: U07.1 COVID-19 (principal); J12.82 Pneumonia due to coronavirus disease 2019; J96.01 Acute respiratory failure with hypoxia; N39.0 Urinary tract infection, site not specified; E11.65 Type 2 diabetes mellitus with hyperglycemia; I10 Essential (primary) hypertension; E03.9 Hypothyroidism, unspecified; K21.9 Gastro-esophageal reflux disease without esophagitis; K44.9 Diaphragmatic hernia without obstruction or gangrene; R79.89 Other specified abnormal findings of blood chemistry; K76.0 Fatty (change of) liver, not elsewhere classified
CPT/HCPCS: 0240U; 36415; 71045; 76705; 80048; 80053; 80061; 80076; 81003; 81015; 82728; 82947; 83036; 83605; 83690; 83735; 84145; 84439; 84443; 84484; 85025; 85379; 85610; 85730; 86140; 87040; 87070; 87081; 87086; 87088; 94010; 94760; 96365; 96375; 97110; 97116; 97161; 99284; J0456; J0696; J1650; J2920; J2930; J7030; J7050